=== PATIENT | female | born 1975 | race Caucasian/White ===

== ENCOUNTER 2017-06-26 18:39 | Emergency (ER) | payer BC ==
[~2017-06-26] VITALS: Ht 177.8 cm; Wt 99.8 kg
[~2017-06-26 18:39] MED LIST: BENTYL20 MG PO; CIPRO500 MG PO; Dicyclomine HCl20 MG PO; Flagyl500 MG PO; PANT40 PO; Pepcid40 MG PO
[2017-06-26 20:26] LABS: BASOPHILS ABSOLUTE AUTO 0.04 K/mm3 (0.00-0.23); BASOPHILS PERCENT AUTO 0 % (0-2); EOSINOPHILS ABSOLUTE AUTO 0.16 K/mm3 (0.00-0.68); EOSINOPHILS PERCENT AUTO 1 % (0-6); Hematocrit 42.8 % (33.0-51.0); Hemoglobin 14.4 g/dL (11.5-16.0); IMMATURE GRAN ABSOLUTE AUTO 0.04 K/mm3 (0.00-0.10); IMMATURE GRAN PERCENT AUTO 0 % (0-1); LYMPHOCYTES ABSOLUTE AUTO 3.15 K/mm3 (0.84-5.20); LYMPHOCYTES PERCENT AUTO 28 % (21-46); MONOCYTES ABSOLUTE AUTO 0.53 K/mm3 (0.16-1.47); MONOCYTES PERCENT AUTO 5 % (4-13); Mean Corpuscular HGB 30.6 pg (26.0-34.0); Mean Corpuscular HGB Conc 33.6 g/dL (31.5-36.5); Mean Corpuscular Volume 91 fL (80-100); Mean Platelet Volume 8.5 fL (9.1-12.4); NEUTROPHILS ABSOLUTE AUTO 7.19 K/mm3 (1.96-9.15); NEUTROPHILS PERCENT AUTO 65 % (41-73); Platelet Count 391 K/mm3 (150-400); RDW Coefficient Variation 11.7 % (11.7-14.2); RDW Standard Deviation 39.3 fL (35.1-46.3); White Blood Cell Count 11.11 K/mm3 (4.00-11.30)
[2017-06-26 20:53] LABS: Alanine Aminotransfer (ALT/SGP 15 U/L (12-78); Albumin, Blood 4.1 g/dL (3.4-5.0); Albumin/Globulin Ratio 1.2 (0.8-1.8); Alk Phos 74 U/L (50-136); Anion Gap 9 mmol/L (6-16); Aspartate Aminotrans (AST/SGOT 12 U/L (12-37); Bilirubin, Total 0.2 mg/dL (0.1-1.0); Blood Urea Nitrogen 24 mg/dL (8-24); Bun/Creatinine Ratio 36.3 (12.0-20.0); CO2, Blood 23 mmol/L (21-32); Calcium, Blood 9.4 mg/dL (8.5-10.1); Chloride, Blood 108 mmol/L (98-108); Creatinine, Blood 0.66 mg/dL (0.40-1.00); Globulin, Blood 3.5 g/dL (2.2-4.0); Glomerular Filtration Rate >60 (60-); Glucose, Blood 88 mg/dL (70-99); Potassium, Blood 4.1 mmol/L (3.5-5.5); Sodium, Blood 140 mmol/L (136-145); Total Protein, Blood 7.6 g/dL (6.4-8.2)
[2017-06-26 22:34] LABS: Troponin I <0.015 ng/mL (0.000-0.040)
== END 2017-06-26 23:26 | disposition home or self-care (01) ==
LOC: ER 18:39
PROVIDERS: Physician Assistant
DX: R10.12 Left upper quadrant pain (principal); Z87.891 Personal history of nicotine dependence
CPT/HCPCS: 36415; 74177; 80053; 81025; 83690; 84484; 85025; 93005; 93010; 96374; 99284; J3490; Q9967

== ENCOUNTER 2020-08-27 18:41 | Emergency (ER) | payer BC, OTHER ==
[~2020-08-27] VITALS: Ht 177.8 cm; Wt 111.1 kg
[2020-08-27] MEDS ORDERED: Celexa20 MG PO (19:10)
[2020-08-27] MEDS ORDERED: Betamethasone D15 G1 TOP (19:11)
== END 2020-08-27 19:15 | disposition home or self-care (01) ==
LOC: ER 18:41
DX: N93.9 Abnormal uterine and vaginal bleeding, unspecified (principal); Z87.891 Personal history of nicotine dependence
CPT/HCPCS: 99282

== ENCOUNTER 2020-09-20 09:01 | Day surgery (SDC) | payer OTHER ==
[~2020-09-20 09:01] MED LIST changes: +Betamethasone D15 G1 TOP; +Celexa20 MG PO
== END 2020-09-20 22:53 | disposition home or self-care (01) ==
LOC: MOI US 09:01
DX: C53.8 Malignant neoplasm of overlapping sites of cervix uteri (principal)
CPT/HCPCS: 76882

== ENCOUNTER 2020-10-19 07:01 | Day surgery (SDC) | payer BC, OTHER ==
[~2020-10-19] VITALS: Ht 177.8 cm; Wt 107.5 kg
--- NOTE | 2020-10-19 09:47 | NUR ---
10/19/20 0947 [facility] CALLED AND NOTIFIED WILL NEED X RAY FOR CONFIRMATION OF PLACEMENT OF MEDIPORT ON PATIENT.
--- NOTE | 2020-10-19 09:47 | NUR ---
10/19/20 0947 LICHA,LILLY POWER PORT ACCESED WITH ALEJANDRO NEEDLE BY DR WHITT INTRA OP.
== END 2020-10-19 10:26 | disposition home or self-care (01) ==
LOC: ORSCSDS 07:01 → ORSCMMR 08:30 → ORSCSDS 08:30 → ORD 08:30 → ORSCSDS 10:26
PROVIDERS: Surgery
PROC: 0JH60WZ Insertion of Totally Implantable Vascular Access Device into Chest Subcutaneous Tissue and Fascia, Open Approach (ICD-10-PCS; principal; 2020-10-19 08:30)
DX: C53.8 Malignant neoplasm of overlapping sites of cervix uteri (principal); F41.9 Anxiety disorder, unspecified; J45.909 Unspecified asthma, uncomplicated; Z87.891 Personal history of nicotine dependence; Z79.899 Other long term (current) drug therapy
CPT/HCPCS: 77001; C1788; J0690; J1642; J2250; J2704; J2710; J3010; J7120

== ENCOUNTER → 2020-11-17 | Outpatient (CLI) | payer BC, OTHER ==
[2020-11-17 09:44] LABS: BASOPHILS ABSOLUTE AUTO 0.03 K/mm3 (0.00-0.23); BASOPHILS PERCENT AUTO 1 % (0-2); EOSINOPHILS ABSOLUTE AUTO 0.05 K/mm3 (0.00-0.68); EOSINOPHILS PERCENT AUTO 2 % (0-6); Hematocrit 26.8 % (33.0-51.0); Hemoglobin 8.6 g/dL (11.5-16.0); IMMATURE GRAN ABSOLUTE AUTO 0.01 K/mm3 (0.00-0.10); IMMATURE GRAN PERCENT AUTO 0 % (0-1); LYMPHOCYTES ABSOLUTE AUTO 0.79 K/mm3 (0.84-5.20); LYMPHOCYTES PERCENT AUTO 27 % (21-46); MONOCYTES ABSOLUTE AUTO 0.21 K/mm3 (0.16-1.47); MONOCYTES PERCENT AUTO 7 % (4-13); Mean Corpuscular HGB 26.5 pg (26.0-34.0); Mean Corpuscular HGB Conc 32.1 g/dL (31.5-36.5); Mean Corpuscular Volume 83 fL (80-100); Mean Platelet Volume 8.6 fL (9.1-12.4); NEUTROPHILS ABSOLUTE AUTO 1.83 K/mm3 (1.96-9.15); NEUTROPHILS PERCENT AUTO 63 % (41-73); Platelet Count 170 K/mm3 (150-400); RDW Coefficient Variation 21.8 % (11.7-14.2); RDW Standard Deviation 64.5 fL (35.1-46.3); Red Blood Cell Count 3.25 M/mm3 (3.80-5.20); White Blood Cell Count 2.92 K/mm3 (4.00-11.30)
[2020-11-17 10:57] LABS: Alanine Aminotransfer (ALT/SGP 38 U/L (12-78); Albumin, Blood 3.9 g/dL (3.4-5.0); Albumin/Globulin Ratio 1.1 (0.8-1.8); Alk Phos 96 U/L (50-136); Anion Gap 8 mmol/L (6-16); Aspartate Aminotrans (AST/SGOT 24 U/L (12-37); Bilirubin, Total 0.4 mg/dL (0.1-1.0); Blood Urea Nitrogen 11 mg/dL (8-24); Bun/Creatinine Ratio 13.8 (12.0-20.0); CO2, Blood 24 mmol/L (21-32); Calcium, Blood 9.2 mg/dL (8.5-10.1); Chloride, Blood 106 mmol/L (98-108); Globulin, Blood 3.4 g/dL (2.2-4.0); Glomerular Filtration Rate >60 (60-); Glucose, Blood 104 mg/dL (70-99); Potassium, Blood 3.7 mmol/L (3.5-5.5); Sodium, Blood 138 mmol/L (136-145); Total Protein, Blood 7.3 g/dL (6.4-8.2)
== END ==
LOC: LAB SHORT 09:35 → LAB 12:00
PROVIDERS: Internal Medicine Hematology & Oncology
DX: C53.9 Malignant neoplasm of cervix uteri, unspecified (principal)
CPT/HCPCS: 80053; 85025

== ENCOUNTER → 2021-02-15 | Outpatient (CLI) | payer BC, OTHER ==
[2021-02-15 10:48] LABS: Source, Urine Clean Catch
[2021-02-15 10:59] LABS: Appearance, Urine Hazy (Clear); Bilirubin, Urine Neg (Neg); Blood, Urine 3+ (Neg); Color, Urine Yellow (P-Yellow); Glucose Qualitative, Urine Neg (Neg); Ketones, Urine Neg (Neg); Leukocyte Esterase, Urine 3+ (Neg); Nitrite, Urine Neg (Neg); Protein, Urine 2+ (Neg); Urobilinogen, Urine NORM (Normal)
[2021-02-15 11:18] LABS: Squamous Epithelial Cells Mod /hpf (Few)
[2021-02-15 11:19] LABS: Amorphous Light (0-Heavy); Bacteria Few /hpf
== END ==
LOC: LAB SHORT 09:41 → LAB 09:41
PROVIDERS: Surgery
DX: Z51.0 Encounter for antineoplastic radiation therapy (principal); C53.8 Malignant neoplasm of overlapping sites of cervix uteri; N93.9 Abnormal uterine and vaginal bleeding, unspecified; D70.1 Agranulocytosis secondary to cancer chemotherapy
CPT/HCPCS: 81001; 87086

== ENCOUNTER → 2021-03-16 | Outpatient (CLI) | payer BC, OTHER ==
[2021-03-16 09:22] LABS: BASOPHILS ABSOLUTE AUTO 0.04 K/mm3 (0.00-0.23); BASOPHILS PERCENT AUTO 1 % (0-2); EOSINOPHILS ABSOLUTE AUTO 0.36 K/mm3 (0.00-0.68); EOSINOPHILS PERCENT AUTO 7 % (0-6); Hematocrit 31.8 % (33.0-51.0); Hemoglobin 10.4 g/dL (11.5-16.0); IMMATURE GRAN ABSOLUTE AUTO 0.04 K/mm3 (0.00-0.10); IMMATURE GRAN PERCENT AUTO 1 % (0-1); LYMPHOCYTES ABSOLUTE AUTO 0.94 K/mm3 (0.84-5.20); LYMPHOCYTES PERCENT AUTO 19 % (21-46); MONOCYTES ABSOLUTE AUTO 0.58 K/mm3 (0.16-1.47); MONOCYTES PERCENT AUTO 11 % (4-13); Mean Corpuscular HGB Conc 32.7 g/dL (31.5-36.5); Mean Corpuscular Volume 101 fL (80-100); Mean Platelet Volume 8.3 fL (9.1-12.4); NEUTROPHILS ABSOLUTE AUTO 3.13 K/mm3 (1.96-9.15); NEUTROPHILS PERCENT AUTO 61 % (41-73); Platelet Count 192 K/mm3 (150-400); RDW Coefficient Variation 13.2 % (11.7-14.2); RDW Standard Deviation 49.1 fL (35.1-46.3); Red Blood Cell Count 3.15 M/mm3 (3.80-5.20); White Blood Cell Count 5.09 K/mm3 (4.00-11.30)
[2021-03-16 09:38] LABS: Anion Gap 9 mmol/L (6-16); Blood Urea Nitrogen 16 mg/dL (8-24); Bun/Creatinine Ratio 15.2 (12.0-20.0); CO2, Blood 24 mmol/L (21-32); Calcium, Blood 9.5 mg/dL (8.5-10.1); Chloride, Blood 102 mmol/L (98-108); Creatinine, Blood 1.05 mg/dL (0.40-1.00); Glomerular Filtration Rate 57 (60-); Glucose, Blood 95 mg/dL (70-99); Potassium, Blood 4.2 mmol/L (3.5-5.5); Sodium, Blood 135 mmol/L (136-145); Thyroid Stimulating Hormone 4.308 uIU/mL (0.360-4.800); Troponin I <0.017 ng/mL (0.000-0.040)
== END | disposition home or self-care (01) ==
LOC: LAB SHORT 09:13
PROVIDERS: Physician Assistant Surgical
DX: R00.0 Tachycardia, unspecified (principal)
CPT/HCPCS: 80048; 84443; 84484; 85025; 85379

== ENCOUNTER 2021-04-25 06:23 | Emergency (ER) | payer OTHER ==
[~2021-04-25] VITALS: Ht 177.8 cm; Wt 104.3 kg
[2021-04-25] MEDS ORDERED: OXYC5 PO (06:49)
[2021-04-25 07:05] LABS: Source, Urine Clean Catch
[2021-04-25 07:18] LABS: Appearance, Urine Clear (Clear); Bilirubin, Urine Neg (Neg); Blood, Urine Neg (Neg); Color, Urine Yellow (P-Yellow); Glucose Qualitative, Urine Neg (Neg); Ketones, Urine Neg (Neg); Leukocyte Esterase, Urine 1+ (Neg); Nitrite, Urine Neg (Neg); Protein, Urine 1+ (Neg); Urobilinogen, Urine NORM (Normal)
[2021-04-25 07:30] LABS: Bacteria Rare /hpf; Red Blood Cells, Urine 0-2 /hpf (0-2); Squamous Epithelial Cells Rare /hpf (Few)
== END 2021-04-25 07:55 | disposition home or self-care (01) ==
LOC: ER 06:23
PROVIDERS: Emergency Medicine
DX: M54.50 Low back pain, unspecified (principal); C76.0 Malignant neoplasm of head, face and neck; C77.9 Secondary and unspecified malignant neoplasm of lymph node, unspecified; Z85.43 Personal history of malignant neoplasm of ovary; G89.29 Other chronic pain; Z79.899 Other long term (current) drug therapy
CPT/HCPCS: 81001; 87086; 96374; 99284-25; J1170

== ENCOUNTER 2021-05-18 19:49 | Emergency (ER) | payer OTHER ==
[~2021-05-18] VITALS: Ht 177.8 cm; Wt 97.5 kg
[~2021-05-18 19:49] MED LIST changes: +OXYC5 PO
[2021-05-18] MEDS ORDERED: CITALOPRAM HBR20 M6 PO (20:16)
[2021-05-18] MEDS ORDERED: ONDA4ODT (20:16)
[2021-05-18] MEDS ORDERED: MECL25 PO (20:16)
[2021-05-24] MEDS ORDERED: FENTANYL1 EAC7 TOP (07:52)
== END 2021-05-18 22:29 | disposition home or self-care (01) ==
LOC: ER 19:49
DX: G89.3 Neoplasm related pain (acute) (chronic) (principal); C41.2 Malignant neoplasm of vertebral column; C77.9 Secondary and unspecified malignant neoplasm of lymph node, unspecified
CPT/HCPCS: 72132; 96374; 96375; 99284-25; J1170; J2765; Q9967

== ENCOUNTER 2021-06-08 17:10 | Emergency (ER) | payer OTHER ==
[~2021-06-08] VITALS: Ht 177.8 cm; Wt 99.8 kg
[~2021-06-08 17:10] MED LIST changes: +CITALOPRAM HBR20 M6 PO; +FENTANYL1 EAC7 TOP; +MECL25 PO; +ONDA4ODT
[2021-06-08 18:09] LABS: BASOPHILS ABSOLUTE AUTO 0.01 K/mm3 (0.00-0.23); BASOPHILS PERCENT AUTO 0 % (0-2); EOSINOPHILS ABSOLUTE AUTO 0.03 K/mm3 (0.00-0.68); EOSINOPHILS PERCENT AUTO 1 % (0-6); Hematocrit 25.5 % (33.0-51.0); Hemoglobin 8.7 g/dL (11.5-16.0); IMMATURE GRAN ABSOLUTE AUTO 0.05 K/mm3 (0.00-0.10); IMMATURE GRAN PERCENT AUTO 1 % (0-1); LYMPHOCYTES ABSOLUTE AUTO 0.42 K/mm3 (0.84-5.20); LYMPHOCYTES PERCENT AUTO 10 % (21-46); MONOCYTES ABSOLUTE AUTO 0.46 K/mm3 (0.16-1.47); MONOCYTES PERCENT AUTO 11 % (4-13); Mean Corpuscular HGB 31.1 pg (26.0-34.0); Mean Corpuscular HGB Conc 34.1 g/dL (31.5-36.5); Mean Corpuscular Volume 91 fL (80-100); NEUTROPHILS ABSOLUTE AUTO 3.31 K/mm3 (1.96-9.15); NEUTROPHILS PERCENT AUTO 77 % (41-73); RDW Coefficient Variation 18.4 % (11.7-14.2); RDW Standard Deviation 57.8 fL (35.1-46.3); White Blood Cell Count 4.28 K/mm3 (4.00-11.30)
[2021-06-08 18:19] LABS: Albumin, Blood 3.6 g/dL (3.4-5.0); Albumin/Globulin Ratio 0.8 (0.8-1.8); Bilirubin, Total 0.4 mg/dL (0.1-1.0); Calcium, Blood 9.3 mg/dL (8.5-10.1); Creatinine, Blood 1.46 mg/dL (0.40-1.00); Globulin, Blood 4.4 g/dL (2.2-4.0); Potassium, Blood 4.4 mmol/L (3.5-5.5)
[2021-06-08 18:29] LABS: Mean Platelet Volume 8.6 fL (9.1-12.4); Platelet Count 123 K/mm3 (150-400)
[2021-06-08] MEDS ORDERED: OXAYDO5 M4 PO (18:35)
[2021-06-08] MEDS ORDERED: HYDMOR2 PO (22:38)
== END 2021-06-08 23:10 | disposition home or self-care (01) ==
LOC: ER 17:10
PROVIDERS: Physician Assistant
DX: G89.3 Neoplasm related pain (acute) (chronic) (principal); C79.51 Secondary malignant neoplasm of bone; C56.9 Malignant neoplasm of unspecified ovary; Z87.891 Personal history of nicotine dependence
CPT/HCPCS: 36415; 71046; 72100; 80053; 85025; 96372; 96374; 96375; 99283-25; A9270; J1170; J1642; J1885; J2550; J7030

== ENCOUNTER 2021-06-09 09:47 | Inpatient (IN) | payer OTHER ==
[~2021-06-09] VITALS: Ht 177.8 cm; Wt 105.0 kg
[~2021-06-09 09:47] MED LIST changes: +HYDMOR2 PO; +OXAYDO5 M4 PO
--- NOTE | 2021-06-09 17:35 | NUR ---
Brief supportive visit this afternoon. Pt just arrived to medical floor room. Pt reports 6/10 pain across her lower back. Pt appears mildly anxious as well. Reviewed plan of care with Pt and parents. Pt and family express appreciation. Spoke with Dr Roy and discussed case. Dr Roy will consider starting Pt on dexamethasone to assist with pain. Bowel protocol started. Will review benefits of current regimen tomorrow for pain and bowel. If appropriate Pt may benefit from increase in her Fentanyl Patch, if no results from current bowel regimen consider changing from Senakot to Senna S (Plus) 1 to 2 tabs BID. Spoke with Primary RN Lisa and discussed case. Discussed consideration of offering Pt "Brown Cow" (Prune Juice, Apple Juice, butter combined and served warm). Palliative Care will remain available for symptom management.
--- NOTE | 2021-06-09 18:32 | NUR ---
Pt arrived to 330 via gurney from ED, she is able to stand and tx to bed indep, a/ox3, pleasant and cooperative with care, follows commands well, reports pain to her low back at 6/10, lungs are clear t/o, resp even and unlabored, no cough noted, hrr, no edema noted, ppp+2, cap refill <3sec, vs stable, afebrile, iv access is mediport, flushes well, started ns at tko, gave one dose of dilaudid for pain, btx4, hypoactive, abd soft, tender, no bm in several days, drank some prune juice, voids without diff, skin c/w/d, maew, shanell, call light in reach.
--- NOTE | 2021-06-10 01:39 | NUR ---
Patient alert and oriented x4, gait steady. Complains of the worst pain 7/10 on her back and hip area. Provided heating pad. PRN pain medications given. Patient is very anxious due to pain, PRN ativan given once. She is now more calm, but still complaining of severe pain and acid reflux. MD ordered omperazole daily and one to start now. Patient has a mediport that is accessed, changed dressing today. Patient had a BM also. Pain managed with PRN PO dilaudid and IV dilaudid, but needs it frequently. Vital signs are stable. Call light within reach.
[2021-06-10 05:06] LABS: Hematocrit 23.5 % (33.0-51.0); Hemoglobin 7.8 g/dL (11.5-16.0); Mean Corpuscular HGB 30.7 pg (26.0-34.0); Mean Corpuscular HGB Conc 33.2 g/dL (31.5-36.5); Mean Corpuscular Volume 93 fL (80-100); Platelet Count 101 K/mm3 (150-400); RDW Coefficient Variation 17.9 % (11.7-14.2); RDW Standard Deviation 58.6 fL (35.1-46.3); Red Blood Cell Count 2.54 M/mm3 (3.80-5.20); White Blood Cell Count 5.08 K/mm3 (4.00-11.30)
[2021-06-10 06:05] LABS: BAND PERCENT MAN 1 % (0-8); BASOPHILS PERCENT MAN 0 % (0-2); EOSINOPHILS PERCENT MAN 0 % (0-6); LYMPHOCYTES PERCENT MAN 8 % (21-46); MONOCYTES ABSOLUTE MAN 0.45 K/mm3 (0.16-1.47); MONOCYTES PERCENT MAN 9 % (4-13); NEUTROPHILS ABSOLUTE MAN 4.21 K/mm3 (1.96-9.15); SEG NEUTROPHILS PERCENT MAN 82 % (41-73); TOTAL CELLS COUNTED 100
[2021-06-10 07:22] LABS: Albumin, Blood 3.5 g/dL (3.4-5.0); Albumin/Globulin Ratio 0.9 (0.8-1.8); Bilirubin, Total 0.5 mg/dL (0.1-1.0); Bun/Creatinine Ratio 10.8 (12.0-20.0); Calcium, Blood 9.1 mg/dL (8.5-10.1); Creatinine, Blood 1.3 mg/dL (0.40-1.00); Globulin, Blood 3.7 g/dL (2.2-4.0); Total Protein, Blood 7.2 g/dL (6.4-8.2)
--- NOTE | 2021-06-10 11:34 | NUR ---
AT BEDSIDE 10:45 REQUESTED ATIVAN ORDER X1 DONE
--- NOTE | 2021-06-10 13:22 | NUR ---
UPDATED DR ZIMMERMAN, RE BP AND ATIVAN RESPONSE. SHE IS CALMER, BUT STILL ANTSY. ATTEMPTING TO GET TO REST. HOLDING OFF ON B/P MEDS AT THIS TIME.
--- NOTE | 2021-06-10 15:54 | NUR ---
DISCUSSED BP WITH DR ZIMMERMAN. ORDERS PENDING
--- NOTE | 2021-06-10 17:50 | NUR ---
PT HAS BEEN ANXIOUS, PACING, DENIES HIGH PAIN, JUST FEELS BAD. DISCUSSED WDITH DR ZIMMERMAN, GOT ANX MEDS AND LATER TODAY, GOT BP MEDS DUE TO HIGH BP. FAMILY IN AND OUT TODAY. SEEMS TO BE SOME BETTER THIS TYRONE. STATES REALLY FEELS HAS BEEN GETTING TOO MUCH PAIN MEDS AND WANTS TO CUT BACK. DONE. NO OTHER CONCERNS NOTED. BED IN LOW POSITION, CALL LITE IN REACH, CALLS APPROP
--- NOTE | 2021-06-11 03:32 | NUR ---
UPDATE PT AWOKE CONFUSED AND AGITATED AFTER RIPPING TUBING OFF MEDIPORT ACCESS. PORT WAS DEACCESSED AND REACCESSED WITH A HEPARIN FLUSH. PT HAVING HALLUCINATIONS AND BECOMING INCREASINGLY AGITATED WITH STAFF. ATTEMPTING TO GET OOB DESPITE UNSTEADY GAIT. JOSE RAUL, PT'S MOTHER CONTACTED AND THIS RN REQUESTED TO SIT AT BEDSIDE WITH PT. WILL CONTINUE TO MONITOR
[2021-06-11 08:26] LABS: BASOPHILS ABSOLUTE AUTO 0.01 K/mm3 (0.00-0.23); BASOPHILS PERCENT AUTO 0 % (0-2); EOSINOPHILS PERCENT AUTO 0 % (0-6); Hematocrit 23.5 % (33.0-51.0); Hemoglobin 8.2 g/dL (11.5-16.0); IMMATURE GRAN PERCENT AUTO 1 % (0-1); LYMPHOCYTES ABSOLUTE AUTO 0.55 K/mm3 (0.84-5.20); LYMPHOCYTES PERCENT AUTO 7 % (21-46); MONOCYTES ABSOLUTE AUTO 0.92 K/mm3 (0.16-1.47); MONOCYTES PERCENT AUTO 11 % (4-13); Mean Corpuscular HGB 31.2 pg (26.0-34.0); Mean Corpuscular HGB Conc 34.9 g/dL (31.5-36.5); Mean Corpuscular Volume 89 fL (80-100); NEUTROPHILS ABSOLUTE AUTO 6.52 K/mm3 (1.96-9.15); NEUTROPHILS PERCENT AUTO 81 % (41-73); Platelet Count 161 K/mm3 (150-400); RDW Coefficient Variation 17.6 % (11.7-14.2); RDW Standard Deviation 56.5 fL (35.1-46.3); Red Blood Cell Count 2.63 M/mm3 (3.80-5.20)
[2021-06-11 09:00] LABS: Albumin, Blood 3.4 g/dL (3.4-5.0); Anion Gap 15 mmol/L (6-16); Blood Urea Nitrogen 13 mg/dL (8-24); Bun/Creatinine Ratio 11.2 (12.0-20.0); CO2, Blood 19 mmol/L (21-32); Calcium, Blood 9.1 mg/dL (8.5-10.1); Chloride, Blood 90 mmol/L (98-108); Creatinine, Blood 1.16 mg/dL (0.40-1.00); Glomerular Filtration Rate 51 (60-); Glucose, Blood 121 mg/dL (70-99); Phosphorus, Blood 3.2 mg/dL (2.5-4.9); Potassium, Blood 3.3 mmol/L (3.5-5.5); Sodium, Blood 124 mmol/L (136-145)
[2021-06-11 10:34] LABS: Osmolality, Serum 255 mos/KG (275-300)
--- NOTE | 2021-06-11 13:11 | NUR ---
REPORT TO JOHNNY RN IN ICU. RELATIVES AWARE PATIENT MAY BE COMING BACK TO THIS FLOOR TODAY AFTER MEDS GIVEN. JOHNNY TO CALL TO CLARIFY 3% SALINE TO BE GIVEN. PATIENT DENIES ANY PAIN. ONE PERSON ASSIT TO W/C. MEDIPORT LOCKED RT C.W. ALL BELONGINGS TRANSFERRED WITH PATIENT. ANSWER ALL QUESTIONS.
--- NOTE | 2021-06-11 13:20 | NUR ---
RECEIVED PT FROM MEDICAL FLOOR VIA WHEELCHAIR.PT ABLE TO TRANSFER FROM THE WHEELCHAIR TO THE BED WITH STANDBY ASSIST. PT IS AWAKE AND ALERT. PT IS ORIENTED X 3. PT STATES "I AM A LITTLE DIZZY AND I THINK I LOST A FEW DAYS." PT REPORTS 6/10 ABDOMINAL PAIN THAT RADIATES TO HER LOWER BACK. MED WITH DILAUDID 1 MG IVP X 1 SEE EMAR. PT STATES " I AM TRYING NOT TO TAKE VERY MUCH PAIN MEDICATION BECAUSE IT MAKES ME ALL LOOPY." ECG SHOWS ST WITH RATE 100-110'S. BP ELEVATED-SEE FLOWSHEET. PT GIVEN APRESOLINE PO SCHEDULED DOSE-SEE EMAR. LUNGS DIMINISHED IN THE BASES, BUT NO NOTED SOB OR COUGH. MAINTAINS SATS>90% ON RA. PT DENIES NAUSEA. PT TOOKE PO MED WITHOUT DIFFICULTY. PT DENIES THE NEED TO VOID AT THIS TIME. SHE GETS UP TO THE BEDSIDE COMMODE TO VOID AND THERE IS NO NOTE OF INCONTINENCE. [facility] MEDIPORT DRESSING IS C/D/I. PT WAS CONFUSED LAST NIGHT AND INADVERTENTLY DEACCESSED HER MEDIPORT. IN DOING SO, SHE CAUSED A SKIN TEAR WHERE THE OCCLUSIVE DRESSING WAS. PT PARENTS AT THE BEDSIDE. BED ALARM ON AND TIFFANY VEST IN PLACE FOR PT SAFETY. CALL LIGHT WITHIN PT REACH AND SHE IS CURRENTLY ABLE TO DEMONSTRATE UNDERSTANDING.
--- NOTE | 2021-06-11 16:11 | NUR ---
DR. ZIMMERMAN NOTIFIED OF NA+123. 3% SALINE TO INFUSED AT 50 CC/HR X 100 CC, THEN RECHECK NA+. PT RESTING QUIETLY WHEN NOT DISTURBED, BUT AWAKENS EASILY AND IS A&OX3-FORGETFUL AT TIMES, BUT EASILY RE-ORIENTED. BP 168/119-DR. ZIMMERMAN AWARE.
--- NOTE | 2021-06-11 17:00 | NUR ---
ASSISTED PT OOB TO BSC WITH STANDBY ASSISTFOR LINES AND TUBES. PT GIVEN SPONGE BATH, HAIR WASHED, CLOTHES CHANGED, ORAL CARE COMPLETED. PT TOLERATED WELL. SHE WAS ABLE TO ASSIST WITH THESE TASKS AND REMAINS ORIENTED. PT DENIES PAIN AT THIS TIME.
--- NOTE | 2021-06-11 17:50 | NUR ---
PT REPORTS 5/10 ABDOMINAL, LOW BACK, AND LEFT HIP PAIN. PT HAS HAD A VERY POOR APPETITE TODAY AND IS REFUSING DINNER. PT MED WITH ZOFRAN 4 MG IVP X 1-SEE EMAR. GIVEN NOW DOSE OF KCL 40 MEQ PO. BP REMAINS ELEVATED. PT GIVEN APRESOLINE 50 MG PO-SEE EMAR. 3% SALINE INFUSING @ 50 CC/HR X 100 ML, THEN WILL RE-CHECK CMP.
[2021-06-11 18:55] LABS: Anion Gap 10 mmol/L (6-16); Blood Urea Nitrogen 9 mg/dL (8-24); Bun/Creatinine Ratio 11.7 (12.0-20.0); CO2, Blood 17 mmol/L (21-32); Chloride, Blood 103 mmol/L (98-108); Creatinine, Blood 0.77 mg/dL (0.40-1.00); Glomerular Filtration Rate >60 (60-); Glucose, Blood 86 mg/dL (70-99); Potassium, Blood 2.6 mmol/L (3.5-5.5); Sodium, Blood 130 mmol/L (136-145)
[2021-06-11 18:58] LABS: Calcium, Blood 6.6 mg/dL (8.5-10.1)
--- NOTE | 2021-06-11 19:23 | NUR ---
DR. ZIMMERMAN NOTIFIED THAT BP REMAINS ELEVATED DESPITE ADDITIONAL APRESOLINE-ORDERS GIVEN FOR HYDRALAZINE 20 MG IVP X [address]. DR. ZIMMERMAN AWARE THAT NA+ NOW 130-3% SALINE DISCONTINUED. RECHECK CMP IN 4 HOURS. K+ 2.6 DESPITE ADDITIONAL 40 MEQ KCL PO-ORDERS GIVEN FOR KCL [address] ZIMMERMAN AWARE THAT CA+ 6.6-NO NEW ORDERS FOR CA+REPLACEMENT AT THIS TIME. REPORT GIVEN TO EARL OLVERA.
[2021-06-11 22:33] LABS: Bun/Creatinine Ratio 11.4 (12.0-20.0); Calcium, Blood 8.5 mg/dL (8.5-10.1); Creatinine, Blood 1.05 mg/dL (0.40-1.00)
[2021-06-11 22:51] LABS: Anion Gap 13 mmol/L (6-16); Blood Urea Nitrogen 12 mg/dL (8-24); Bun/Creatinine Ratio 11.1 (12.0-20.0); CO2, Blood 20 mmol/L (21-32); Calcium, Blood 8.2 mg/dL (8.5-10.1); Chloride, Blood 90 mmol/L (98-108); Creatinine, Blood 1.08 mg/dL (0.40-1.00); Glomerular Filtration Rate 55 (60-); Glucose, Blood 110 mg/dL (70-99); Phosphorus, Blood 3.2 mg/dL (2.5-4.9); Potassium, Blood 4.1 mmol/L (3.5-5.5); Sodium, Blood 123 mmol/L (136-145)
[2021-06-12 02:14] LABS: BASOPHILS ABSOLUTE AUTO 0.01 K/mm3 (0.00-0.23); BASOPHILS PERCENT AUTO 0 % (0-2); EOSINOPHILS PERCENT AUTO 0 % (0-6); Hematocrit 23.4 % (33.0-51.0); Hemoglobin 8.2 g/dL (11.5-16.0); IMMATURE GRAN ABSOLUTE AUTO 0.08 K/mm3 (0.00-0.10); IMMATURE GRAN PERCENT AUTO 1 % (0-1); LYMPHOCYTES ABSOLUTE AUTO 0.43 K/mm3 (0.84-5.20); LYMPHOCYTES PERCENT AUTO 7 % (21-46); MONOCYTES ABSOLUTE AUTO 0.87 K/mm3 (0.16-1.47); MONOCYTES PERCENT AUTO 14 % (4-13); Mean Corpuscular HGB 31.1 pg (26.0-34.0); Mean Corpuscular Volume 89 fL (80-100); Mean Platelet Volume 7.8 fL (9.1-12.4); NEUTROPHILS ABSOLUTE AUTO 4.87 K/mm3 (1.96-9.15); NEUTROPHILS PERCENT AUTO 78 % (41-73); Platelet Count 123 K/mm3 (150-400); RDW Coefficient Variation 17.8 % (11.7-14.2); RDW Standard Deviation 56.7 fL (35.1-46.3); Red Blood Cell Count 2.64 M/mm3 (3.80-5.20); White Blood Cell Count 6.26 K/mm3 (4.00-11.30)
[2021-06-12 02:30] LABS: Anion Gap 13 mmol/L (6-16); Blood Urea Nitrogen 12 mg/dL (8-24); Bun/Creatinine Ratio 11.8 (12.0-20.0); CO2, Blood 20 mmol/L (21-32); Calcium, Blood 8.3 mg/dL (8.5-10.1); Chloride, Blood 92 mmol/L (98-108); Creatinine, Blood 1.02 mg/dL (0.40-1.00); Glomerular Filtration Rate 59 (60-); Glucose, Blood 99 mg/dL (70-99); Phosphorus, Blood 2.9 mg/dL (2.5-4.9); Sodium, Blood 125 mmol/L (136-145)
--- NOTE | 2021-06-12 05:40 | NUR ---
SHIFT SUMMARY PATIENT HAD INTAKE OF 500ML FREE WATER DURING SHIFT. SODIUM LEVEL 121 AT BEGINNING OF SHIFT-3% SALINE RESTARTED @ 50ML/HR W/ Q2H BMP. MAG AND POTASSIUM LEVELS LOW AT BEGINNING OF SHIFT-2G MAGNESIUM SULFATE AND 40MEQ KCL GIVEN. PATIENT BP REMAINED HIGH AT BEGINNING OF SHIFT-ORDERS OBTAINED FOR Q6H PRN HYDRALAZINE 50MG IV FOR SBP GREATER THAN 160 MMHG. PATIENT COMPLAINED OF INCREASING PAIN IN HIPS, RT SIDE AND LT SHOULDER-DILAUDID 1MG IV GIVEN WITH INCREASED CONFUSION, PATIENT REQUESTED 0.5MG AT THE NEXT ADMINISTRATION. MORPHINE 20MG GIVEN X 1. PATIENT HAD ONE EPISODE OF NAUSEA REQUIRING 4MG ZOFRAN IV. NO OTHER CHANGES DURING SHIFT.
[2021-06-12 07:05] LABS: Bun/Creatinine Ratio 11.7 (12.0-20.0); Calcium, Blood 8.5 mg/dL (8.5-10.1); Creatinine, Blood 1.03 mg/dL (0.40-1.00)
--- NOTE | 2021-06-12 07:51 | NUR ---
PT AWAKE, ALERT, AND ORIENTED X 4. PT DENIES PAIN AT THIS TIME. ECG SHOWS ST WITH RATE 110'S TO 120'S. BP 160/102-ROUTINE AM BP MEDS GIVEN-SEE EMAR. LUNGS CLEAR. NO NOTED SOB OR COUGH. SATS>90% ON RA. ABDOMEN IS SOFT AND MILDLY TENDER TO PALPATION. RIGHT QUADRANT WITH BRUISING NOTED(LIKELY FROM LOVENOX INJECTIONS.) BT'S PRESENT X 4. PT DOES NOT NEED TO VOID AT THIS TIME. SHE WILL CALL FOR ASSIST TO BRP PRN. SKIN IS OVERALL CLEAR, DRY, AND INTACT. [facility] MEDIPORT DRESSING C/D/I, BUT THE SKIN INTEGRITY HAS BEEN COMPROMISED PT ACCIDENTALLY REMOVED HER MEDIPORT(06/11/21 EARLY AM) DRESSING AND IN DOING SO, REMOVED THE SKIN WITH IT. 3% NS CONTINUES AT 30 ML/HR. REPEAT CMP @ 1000.
--- NOTE | 2021-06-12 10:06 | NUR ---
DR. ZIMMERMAN HERE TO SEE PT. DURING NEURO EXAM, NOTED THAT RIGHT PUPIL IS 7 MM AND SLUGGISH VS. LEFT PUPIL 4 MM AND BRISK. RIGHT EYE WITH NYSTAGMUS. ALSO, STRABISMUS AND CONVERGENCE INSUFFICIENCY NOTED. PT REPORTS BLURRED VISION AND DIZZINESS THAT HAS INCREASED OVER THE LAST COUPLE OF WEEKS. PT MOTHER REPORTS THAT PT WAS NOT ABLE TO KEEP HER RIGHT EYE OPEN A COUPLE OF DAYS AGO. DR. ZIMMERMAN AWARE THAT PT REMAINS HYPERTENSIVE. ANTICIPATE NEW RX FOR BP AND CT OF THE HEAD LATER TODAY. CMP DRAWN AND SENT TO LAB.
[2021-06-12 10:26] LABS: Albumin, Blood 2.9 g/dL (3.4-5.0); Albumin/Globulin Ratio 0.9 (0.8-1.8); Bilirubin, Total 0.3 mg/dL (0.1-1.0); Bun/Creatinine Ratio 10.5 (12.0-20.0); Calcium, Blood 8.2 mg/dL (8.5-10.1); Creatinine, Blood 1.14 mg/dL (0.40-1.00); Globulin, Blood 3.4 g/dL (2.2-4.0); Potassium, Blood 4.2 mmol/L (3.5-5.5); Total Protein, Blood 6.3 g/dL (6.4-8.2)
--- NOTE | 2021-06-12 11:43 | NUR ---
PT TRANSPORTED TO CT SCAN VIA BED WITH RN AT BEDSIDE. TOLERATED WELL. PT ABLE TO ALLOW FOR COMPLETION OF CT HEAD, CHEST, ABDOMEN, AND PELVIS. WITH ALL THE MOVING, PT STATES THAT HER HIP PAIN IS WORSE-WILL MEDICATE FOR PAIN PER RX. HR TRENDING 110-140'S. SBP 130-160'S AND DBP 100-110'S. IST DOSE OF METOPROLOL PO GIVEN PRIOR TO CT SCAN-SEE EMAR.PT FAMILY IN THE ROOM FOR VISIT. CALL LIGHT WITHIN REACH.
--- NOTE | 2021-06-12 12:45 | NUR ---
DR. ZIMMERMAN GIVEN UPDATE AND MADE AWARE THAT CT RESULTS ARE AVAILABLE. ORDERS GIVEN TO RECHECK RP @ 1600.
--- NOTE | 2021-06-12 13:03 | NUR ---
PT REPORTS 08/12 RIGHT HIP AND BACK PAIN-MED WITH ROXANOL 20 MG PO.
--- NOTE | 2021-06-12 14:56 | NUR ---
DR. ZIMMERMAN HERE TO SPEAK TO PT AND FAMILY REGARDING CT RESULTS.
[2021-06-12 15:56] LABS: Albumin, Blood 2.8 g/dL (3.4-5.0); Anion Gap 6 mmol/L (6-16); Blood Urea Nitrogen 13 mg/dL (8-24); Bun/Creatinine Ratio 10.7 (12.0-20.0); CO2, Blood 21 mmol/L (21-32); Calcium, Blood 8.2 mg/dL (8.5-10.1); Chloride, Blood 100 mmol/L (98-108); Creatinine, Blood 1.21 mg/dL (0.40-1.00); Glomerular Filtration Rate 48 (60-); Glucose, Blood 107 mg/dL (70-99); Phosphorus, Blood 3.4 mg/dL (2.5-4.9); Potassium, Blood 4.4 mmol/L (3.5-5.5); Sodium, Blood 127 mmol/L (136-145)
--- NOTE | 2021-06-12 16:00 | NUR ---
ASSISTED PT TO SHOWER VIA SHOWER CHAIR. ONE PERSON ASSIST. PT TOLERATED WELL. UPON RETURN TO ROOM, MEDIPORT DRESSING WAS WET. IN ATTEMPTING TO CHANGE THE DRESSING, THE SAFETY DEVICE ACTIVATED AND DEACCESSED THE DEVICE-IMMEDIATELY, THE AREA WAS CLEANSED WITH CHLORHEXADINE, THEN RE-ACCESSED WITH 20G/0.75 LENGTH. EXCELLENT BLOOD RETURN AND PT TOLERATED WELL. 3% SALINE CONTINUES @ 30 ML/HR. HR TRENDING 90'S AND SBP 130'S/DBP 90'S. LUNGS REMAIN CLEAR, NO NOTED SOB OR COUGH. PT MAINTAINS SATS>90% ON RA. NO NAUSEA AT PRESENT, BUT APPETITE REMAINS POOR.
--- NOTE | 2021-06-12 18:30 | NUR ---
PT HAS BEEN RESTING QUIETLY SINCE MEDICATED WITH DILAUDID @ 1711. PT REFUSED DINNER, BUT DID EAT A FEW ARIA CRACKERS PER HER REQUEST. MEDICATED WITH ZOFRAN 4 MG IVP PRIOR TO GIVING PO KCL. DR. ZIMMERMAN UPDATED TO CURRENT VS AND MOST RECENT NA+ LEVEL-ORDERS GIVEN TO RECHECK RENAL PANEL @ 2199-THERE IS A NURSING ORDER THAT HAS PARAMETERS FOR THE 3% SALINE DRIP. PT HAS ONLY VOIDED 1 TIME TODAY-UNMEASURED IN RADIOLOGY DEPARTMENT. DR. ZIMMERMAN IS AWARE OF POOR URINE OUTPUT, BUT NO NEW ORDERS.
--- NOTE | 2021-06-12 19:18 | NUR ---
ASSUMED CARE PATIENT LYING IN BED SLEEPING. NO FAMILY AT BEDSIDE. BELONGINGS AND WATER ON TABLE. 3% SALINE INF @ 30ML/HR. MONITOR SHOWS SR W/ HR IN 80'S. HYPERTENSIVE W/ BP 159/122 MAP 133. PATIENT APPEARS COMFORTABLE AND RESTING. REPORT COMPLETED WITH EARL ROJAS.
[2021-06-12 22:35] LABS: Albumin, Blood 2.7 g/dL (3.4-5.0); Anion Gap 5 mmol/L (6-16); Blood Urea Nitrogen 14 mg/dL (8-24); Bun/Creatinine Ratio 9.9 (12.0-20.0); CO2, Blood 23 mmol/L (21-32); Calcium, Blood 8.3 mg/dL (8.5-10.1); Chloride, Blood 103 mmol/L (98-108); Creatinine, Blood 1.42 mg/dL (0.40-1.00); Glomerular Filtration Rate 40 (60-); Glucose, Blood 95 mg/dL (70-99); Phosphorus, Blood 3.4 mg/dL (2.5-4.9); Potassium, Blood 4.3 mmol/L (3.5-5.5); Sodium, Blood 131 mmol/L (136-145)
[2021-06-13 03:27] LABS: BASOPHILS ABSOLUTE AUTO 0.01 K/mm3 (0.00-0.23); BASOPHILS PERCENT AUTO 0 % (0-2); EOSINOPHILS ABSOLUTE AUTO 0.01 K/mm3 (0.00-0.68); EOSINOPHILS PERCENT AUTO 0 % (0-6); Hematocrit 21.5 % (33.0-51.0); Hemoglobin 7.2 g/dL (11.5-16.0); IMMATURE GRAN ABSOLUTE AUTO 0.05 K/mm3 (0.00-0.10); IMMATURE GRAN PERCENT AUTO 1 % (0-1); LYMPHOCYTES ABSOLUTE AUTO 0.33 K/mm3 (0.84-5.20); LYMPHOCYTES PERCENT AUTO 7 % (21-46); MONOCYTES ABSOLUTE AUTO 0.75 K/mm3 (0.16-1.47); MONOCYTES PERCENT AUTO 17 % (4-13); Mean Corpuscular HGB 31.3 pg (26.0-34.0); Mean Corpuscular HGB Conc 33.5 g/dL (31.5-36.5); Mean Platelet Volume 8.6 fL (9.1-12.4); NEUTROPHILS PERCENT AUTO 75 % (41-73); Platelet Count 104 K/mm3 (150-400); RDW Coefficient Variation 19.2 % (11.7-14.2); RDW Standard Deviation 64.2 fL (35.1-46.3); White Blood Cell Count 4.55 K/mm3 (4.00-11.30)
[2021-06-13 03:41] LABS: Albumin, Blood 2.6 g/dL (3.4-5.0); Anion Gap 8 mmol/L (6-16); Blood Urea Nitrogen 15 mg/dL (8-24); Bun/Creatinine Ratio 9.7 (12.0-20.0); CO2, Blood 21 mmol/L (21-32); Chloride, Blood 104 mmol/L (98-108); Creatinine, Blood 1.55 mg/dL (0.40-1.00); Glomerular Filtration Rate 36 (60-); Glucose, Blood 94 mg/dL (70-99); Phosphorus, Blood 3.4 mg/dL (2.5-4.9); Potassium, Blood 4.6 mmol/L (3.5-5.5); Sodium, Blood 133 mmol/L (136-145)
[2021-06-13 03:48] LABS: Mean Corpuscular Volume 94 fL (80-100)
--- NOTE | 2021-06-13 05:18 | NUR ---
SHIFT SUMMARY NO SIGNIFICANT CHANGES DURING SHIFT. PATIENT REMAINED ORIENTED X 4, NYSTAGMUS PRESENT AND PUPILS UNEQUAL. PATIENT C/O BLURRY AND DOUBLE VISION. PATIENT REQUIRED 3 DOSES OF DILAUDID 1MG IV DURING SHIFT FOR RT HIP AND BACK PAIN. TOTAL URINE OUTPUT FOR SHIFT WAS 350ML. NO BM THIS SHIFT. LABS SHOWED INCREASE OF SODIUM TO 133-3% SALINE INF @ 20ML/HR.
--- NOTE | 2021-06-13 08:18 | NUR ---
PATIENT EATING BREAKFAST DR LYN ROUNDED ON PATIENT, PATIENT HAVING RIGHT BUTTOX CRAMP, DOUBLE VISSION, AND RIGHT EAR PLUGGED, ALL SYMPTOMS REPORTED TO DR LYN FROM PATIENT. EATING BREAKFAST NOW, MOM AND DAD AT BEDSIDE HELPFUL WITH CARE. MEDICATED FOR PAIN 09/11, CALL LIGHT WITH IN REACH, [facility]
[2021-06-13 08:55] LABS: Albumin, Blood 2.7 g/dL (3.4-5.0); Anion Gap 10 mmol/L (6-16); Blood Urea Nitrogen 15 mg/dL (8-24); Bun/Creatinine Ratio 9.1 (12.0-20.0); CO2, Blood 18 mmol/L (21-32); Calcium, Blood 8.2 mg/dL (8.5-10.1); Chloride, Blood 104 mmol/L (98-108); Creatinine, Blood 1.64 mg/dL (0.40-1.00); Glomerular Filtration Rate 34 (60-); Glucose, Blood 90 mg/dL (70-99); Phosphorus, Blood 3.4 mg/dL (2.5-4.9); Potassium, Blood 4.5 mmol/L (3.5-5.5); Sodium, Blood 132 mmol/L (136-145)
--- NOTE | 2021-06-13 09:47 | NUR ---
PHYSICAL THERAPY PATIENT WORKING WITH PT, MEDICATED FOR PAIN, MOTHER AT BEDSIDE, PATIENT SITTING AT THE EDGE OF BED [place]
--- NOTE | 2021-06-13 11:12 | NUR ---
DR RIKI GARCIA REPORTED RIGHT HIP PAIN RADIATING UP THE RIGHT SIDE AND PATIENT COMPLAINS OF RINGING IN HER EAR ON THE RIGHT SIDE. DR IN THE ROOM NOW WITH PATIENT AND MOTHER
[2021-06-13 14:29] LABS: Albumin, Blood 2.6 g/dL (3.4-5.0); Anion Gap 7 mmol/L (6-16); Blood Urea Nitrogen 18 mg/dL (8-24); Bun/Creatinine Ratio 9.6 (12.0-20.0); CO2, Blood 19 mmol/L (21-32); Calcium, Blood 8.3 mg/dL (8.5-10.1); Chloride, Blood 107 mmol/L (98-108); Creatinine, Blood 1.87 mg/dL (0.40-1.00); Glomerular Filtration Rate 29 (60-); Glucose, Blood 90 mg/dL (70-99); Phosphorus, Blood 3.5 mg/dL (2.5-4.9); Potassium, Blood 4.7 mmol/L (3.5-5.5); Sodium, Blood 133 mmol/L (136-145)
--- NOTE | 2021-06-13 17:04 | NUR ---
MRI PATIENT BACK TO ROOM FROM MRI, PATIENT WAS UNABLE TO LYE FLAT FOR THE MRI, MEDICATED FOR PAIN AND ATTEMPTED AGAIN TO LAY DOWN, PATIENT BECAME ANXIOUS AND REFUSED THE MRI. NO DISTRESS PRESENTLY, FAMILY WENT HOME, 3% INFUSING, CALL LIGHT WITH IN REACH, WCTM
--- NOTE | 2021-06-13 17:28 | NUR ---
DR OLIVARES REPORTED TO DR OLIVARES, PATIENT REFUSED HEAD MRI, PATIENT WAS ENCOURAGED AND PRE MEDICATED, PATIENT ANXIETY AND DISTRESS INCREASED, AFTER TWO TIMES OF ENCOURAGING HER SHE WAS ADMIT TO NOT HAVE THE MRI. TO ORDER PALLIATIVE CARE FOR FAMILY SUPPORT
--- NOTE | 2021-06-13 18:40 | NUR ---
SHIFT SUMMARY PATEINT ALERT AND ORIENTED TO SELF STAFF, FAMILY, PATIENT IS CONFUSED AND HAVING VISUAL HALLUCINATIONS. PATIENT WAS UNABLE TO TOLERATE THE MRI REPORTED TO DR OLIVARES. LS DIMINSHED 98% ON RA, BP 154/107 (119), MEDICATED FOR NAUSEA BEFORE AM MEDICATIONS, STAND BY ASSIST TO BSC, SKIN INTACT, ABRASIONS TO BOTH HANDS KNUCKLES, MEDIPORT INFUSING 3% AT 20 ML/HR, WATER RESTRICTION INCREASED TO 1250, PALLIATIVE CARE ORDERED FOR FAMILY, BUN GFR AND CREATININE WORSENING, DR OLIVARES REVEIWING RESULTS, CALL LIGHT WITH IN REACH, WILL RELAY TO PM RN, WCTM
[2021-06-13 20:22] LABS: Albumin, Blood 2.8 g/dL (3.4-5.0); Anion Gap 6 mmol/L (6-16); Blood Urea Nitrogen 20 mg/dL (8-24); Bun/Creatinine Ratio 10.3 (12.0-20.0); CO2, Blood 19 mmol/L (21-32); Calcium, Blood 8.3 mg/dL (8.5-10.1); Chloride, Blood 110 mmol/L (98-108); Creatinine, Blood 1.95 mg/dL (0.40-1.00); Glomerular Filtration Rate 28 (60-); Glucose, Blood 94 mg/dL (70-99); Phosphorus, Blood 3.4 mg/dL (2.5-4.9); Potassium, Blood 4.6 mmol/L (3.5-5.5); Sodium, Blood 135 mmol/L (136-145)
--- NOTE | 2021-06-13 20:39 | NUR ---
PT NA+ AT 1943 WAS 135. 3% SALINE DISCONTINUED PER MD ORDER PARAMETERS.
--- NOTE | 2021-06-13 21:58 | NUR ---
PT RIGHT HIP PAIN SEVERE, GIVEN SEVERAL PRN SINCE SHIFT BEGAN (SEE EMAR). PT REQUEST TO BE UP IN CHAIR FOR POSITION CHANGE TO SEE IF PAIN WILL DECREASE. PT ASSISTED TO CHAIR. INSTRUCTED TO CALL WITH ANY NEEDS OR TO RETURN TO BED. WILL CONTINUE TO MONITOR.
--- NOTE | 2021-06-13 23:36 | NUR ---
PT IS RESTING IN CHAIR COMFORTABLY WITH EYES CLOSED. NO S/S OF ACUTE DISTRESS NOTED AT THIS TIME.
[2021-06-14 02:24] LABS: BASOPHILS ABSOLUTE AUTO 0.01 K/mm3 (0.00-0.23); BASOPHILS PERCENT AUTO 0 % (0-2); EOSINOPHILS ABSOLUTE AUTO 0.03 K/mm3 (0.00-0.68); EOSINOPHILS PERCENT AUTO 1 % (0-6); Hematocrit 22.2 % (33.0-51.0); Hemoglobin 6.9 g/dL (11.5-16.0); IMMATURE GRAN ABSOLUTE AUTO 0.07 K/mm3 (0.00-0.10); IMMATURE GRAN PERCENT AUTO 2 % (0-1); LYMPHOCYTES ABSOLUTE AUTO 0.41 K/mm3 (0.84-5.20); LYMPHOCYTES PERCENT AUTO 11 % (21-46); MONOCYTES ABSOLUTE AUTO 0.56 K/mm3 (0.16-1.47); MONOCYTES PERCENT AUTO 15 % (4-13); Mean Corpuscular HGB 30.7 pg (26.0-34.0); Mean Corpuscular HGB Conc 31.1 g/dL (31.5-36.5); Mean Platelet Volume 8.5 fL (9.1-12.4); NEUTROPHILS PERCENT AUTO 71 % (41-73); Platelet Count 116 K/mm3 (150-400); RDW Coefficient Variation 20.3 % (11.7-14.2); RDW Standard Deviation 70.1 fL (35.1-46.3); Red Blood Cell Count 2.25 M/mm3 (3.80-5.20); White Blood Cell Count 3.78 K/mm3 (4.00-11.30)
[2021-06-14 02:48] LABS: Albumin, Blood 2.6 g/dL (3.4-5.0); Anion Gap 8 mmol/L (6-16); Blood Urea Nitrogen 21 mg/dL (8-24); Bun/Creatinine Ratio 10.6 (12.0-20.0); CO2, Blood 17 mmol/L (21-32); Calcium, Blood 8.1 mg/dL (8.5-10.1); Chloride, Blood 109 mmol/L (98-108); Creatinine, Blood 1.99 mg/dL (0.40-1.00); Glomerular Filtration Rate 27 (60-); Glucose, Blood 86 mg/dL (70-99); Phosphorus, Blood 3.8 mg/dL (2.5-4.9); Potassium, Blood 4.4 mmol/L (3.5-5.5); Sodium, Blood 134 mmol/L (136-145)
[2021-06-14 02:50] LABS: Mean Corpuscular Volume 99 fL (80-100)
[2021-06-14 09:23] LABS: Albumin, Blood 2.6 g/dL (3.4-5.0); Anion Gap 10 mmol/L (6-16); Blood Urea Nitrogen 21 mg/dL (8-24); Bun/Creatinine Ratio 10.3 (12.0-20.0); CO2, Blood 17 mmol/L (21-32); Calcium, Blood 8.5 mg/dL (8.5-10.1); Chloride, Blood 108 mmol/L (98-108); Creatinine, Blood 2.03 mg/dL (0.40-1.00); Glomerular Filtration Rate 27 (60-); Glucose, Blood 78 mg/dL (70-99); Potassium, Blood 4.6 mmol/L (3.5-5.5); Sodium, Blood 135 mmol/L (136-145)
--- NOTE | 2021-06-14 09:40 | NUR ---
Pt resting in recliner chair upon arrival. Pt's mother and father at bedside. Pt is somnolant and appears with altered mentation. Mother reports this symptom is new from yesterday. Mother intermittently tearful and emotional support offered. Spoke with Primary RN Allyson and discussed case. Spoke with Dr Curiel and discussed case. Dr Curiel to Pt's room and reviews plan of care with Pt's parents. Plan for MRI, blood transfusion and labs. Palliative Care will remain available for supportive and therapeutic visits.
[2021-06-14 09:54] LABS: Base Excess Venous -9.5 mmol/L; Bicarbonate Venous 17.2 mmol/L (24.0-30.0); PCO2 Venous 36.9 mmHg (38-42); pH Blood Venous 7.28 (7.34-7.37)
--- NOTE | 2021-06-14 13:25 | NUR ---
REASSESSMENT PT CONTINUES TO BE QUITE LETHARGIC. SHE DOES WAKE TO VOICE WITH SOME EFFORT AND THEN WILL BE ALERT ENOUGH TO MOVE AROUND, WAS ABLE TO GET FROM THE CHAIR TO THE BED WITH THE WALKER. SHE IS ORIENTED TO PERSON AND PLACE. SINCE SHE WAS MORE LETHARGIC THEN YESTERDAY DR. OLIVARES ASKED FOR THE MRI TO BE TRIED AGAIN. TOOK PT DOWN TO MRI AND SHE WAS UNABLE TO LAY FLAT DUE TO HIP PAIN. TRIED POSITIONING PILLOWS UNDER HER, BUT PT KEPT SITTING RIGHT BACK UP SO UNABLE TO DO MRI. LUNGS ARE CLEAR, BUT VERY DIM. SR, BP STABLE. PT WAS ABLE TO TAKE HER PILLS SAFEYL, BUT HAD NO APPETITE FOR BREAKFAST OR LUNCH. PT VOIDED ON THE COMMODE, BUT ONLY 100ML. RENAL ULTRASOUND OCCURRING NOW AND WILL STRAIGHT CATH IF BLADDER IS FULL PER DR. OLIVARES. PT'S FAMILY HAS BEEN AT THE BEDSIDE ALL MORNING. THEY HAVE BEEN VERY EMOTIONAL AND TEARFUL. SUPPORT GIVEN. PALLIATIVE SPOKE WITH PT'S PARENTS THIS MORNING WELL.
[2021-06-14 14:25] LABS: Source, Urine Foley catheter
[2021-06-14 14:51] LABS: Appearance, Urine Clear (Clear); Bilirubin, Urine Neg (Neg); Blood, Urine Neg (Neg); Color, Urine Yellow (P-Yellow); Glucose Qualitative, Urine Neg (Neg); Ketones, Urine Neg (Neg); Leukocyte Esterase, Urine Neg (Neg); Nitrite, Urine Neg (Neg); Protein, Urine 1+ (Neg); Specific Gravity, Urine 1.015 (1.003-1.022); Urobilinogen, Urine NORM (Normal); pH, Urine 6.5 (5.0-8.0)
--- NOTE | 2021-06-14 16:18 | NUR ---
Multiple visits today. Pt remains somnolant with her mother and dad at bedside throughout the day. Offered therapeutic listening and reviewed current plan of care. Parents are experiencing significant anticapatory grief. Validated concerns and answered questions. Family express appreciation. Palliative Care will remain available.
[2021-06-14 16:51] LABS: Base Excess Venous -5.6 mmol/L; Bicarbonate Venous 20.1 mmol/L (24.0-30.0); pH Blood Venous 7.33 (7.34-7.37)
[2021-06-14 17:09] LABS: Hematocrit 24.4 % (33.0-51.0)
--- NOTE | 2021-06-14 17:31 | NUR ---
SHIFT SUMMARY PT HAS CONTINUED TO BE VERY LETHARGIC THROUGHOUT THE SHIFT. THIS MORNING SHE WAS ABLE TO STAY AWAKE LONG ENOUGH TO HOLD HER OWN CUP OF JUICE TO TAKE HER PILLS, BUT THIS AFTERNOON SHE COULDN'T. SHE WAS STILL ABLE TO GET UP TO THE COMMODE WITH ASSISTANCE THIS AFTERNOON, BUT WAS UNABLE TO VOID. SPOKE WITH DR. OLIVARES AFTER THAT AND RECEIVED OK TO PLACE PATHAK PT HAD SOME RETENTION ON THE LAST SHIFT. LUNGS ARE CLEAR BUT VERY DIM. SR, BP STABLE WITH SBP IN THE 130S. FENTANYL PATCH SWITCHED TO 100MCG PATCH TODAY ORDERED BY DR. OLIVARES, NO OTHER PAIN MEDICATION GIVEN SINCE MORNING MED PASS. PT'S FAMILY REMAINS AT THE BEDSIDE AND MULTIPLE OTHER VISITORS HAVE BEEN IN AND OUT. PALLIATIVE MET WITH PT'S PARENTS. CONTINUING TO MONITOR.
[2021-06-14 17:41] LABS: Albumin, Blood 2.8 g/dL (3.4-5.0); Anion Gap 7 mmol/L (6-16); Blood Urea Nitrogen 26 mg/dL (8-24); Bun/Creatinine Ratio 11.5 (12.0-20.0); CO2, Blood 21 mmol/L (21-32); Calcium, Blood 8.8 mg/dL (8.5-10.1); Chloride, Blood 108 mmol/L (98-108); Creatinine, Blood 2.26 mg/dL (0.40-1.00); Glomerular Filtration Rate 23 (60-); Glucose, Blood 100 mg/dL (70-99); Phosphorus, Blood 4.6 mg/dL (2.5-4.9); Potassium, Blood 4.5 mmol/L (3.5-5.5); Sodium, Blood 136 mmol/L (136-145)
--- NOTE | 2021-06-14 20:01 | NUR ---
ASSUMED CARE RECEIVED REPORT FROM EARL ALRBIGHT AT 1900. PT IS LETHARGIC AND SOMNOLENT, EYELIDS ONLY FLICKER TO VOICE. UNABLE TO FOLLOW COMMANDS, NO PURPOSEFUL MOVEMENTS. RIGHT PUPIL 4MM AND FIXED, LEFT PUPIL 2MM AND SLUGGISH, NO CHANGE FROM DAY SHIFT. CURRENTLLY HAS 100MCG FENTANYL PATCH IN PLACE TO RIGHT ARM. CPN INFUSING INTO MEDIPORT IN RIGHT UPPER CHEST. PG TO HALLIE NASCIMENTO. HR IS SR WITH RATE IN 70-80'S. BP HYPERTENSIVE, PT HAS HX OF HTN AND UNABLE TO GIVE PO MEDICATIONS D/T SOMNOLENCE. GENERALIZED EDEMA, +2 IN BUE AND BLE. LUNGS CLEAR THROUGHOUT, SPO2 96% ON ROOM AIR, RR <10. BT ACTIVE X4. PATHAK DRAINING TO GRAVITY, CLOUDY YELLOW URINE IN BAG. MULTIPLE FAMILY MEMBERS PRESENT AT BEDSIDE. ORDERS REVIEWED.
--- NOTE | 2021-06-14 20:44 | NUR ---
ATTEMPTED TO AROUSE AND ASSESS FOR PO MEDICATION CAPABILITY. PT OPENED EYES WHEN PILLOW WAS REMOVED FROM HER HEAD AND THEN WAS ABLE TO NOD HEAD SLIGHTLY YES OR NO TO SIMPLE QUESTIONS. SHE STILL REMAINS VERY SOMNOLENT AND HAS DIFFICULTY REMAINING AWAKE.
--- NOTE | 2021-06-14 22:26 | NUR ---
REASSESSED FOR PO MED INTAKE. PT WAS ABLE TO OPEN EYES AND ANSWER YES/NO QUESTIONS. ABLE TO TAKE PO MEDS WITHOUT DIFFICULTY AND SHE IS BECOMING MORE ALERT.
--- NOTE | 2021-06-15 00:03 | NUR ---
REASSESSMENT PT REMAINS SOMNOLENT, BUT AROUSES TO VOICE AND TOUCH. ABLE TO ASSIST WITH TURNS, BUT NEEDS CONSTANT DIRECTION. UNABLE TO STATE WHERE SHE IS AT, BUT ANSWERS YES/NO QUESTIONS. DENIES PAIN OR NAUSEA. PUPILS REMAIN UNCHANGED, 4MM RIGHT AND FIXED, 2MM ON LEFT WITH SLUGGISH REACTION TO LIGHT. WHEN SHE OPENS HER EYES, HER RIGHT EYE REMAINS MOSTLY CLOSED. HR CONTINUES SR WITH RATE 70-90'S, BP CONTINUES HYPERTENSIVE DESPITE ORAL MEDS PER EMAR. LUNGS CLEAR AND SPO2 >96% ON ROOM AIR, RR VARIES BUT >10. PATHAK DRAINING TO GRAVITY, YELLOW URINE. AFEBRILE.
--- NOTE | 2021-06-15 04:16 | NUR ---
REASSESSMENT PT CONTINUES TO BE LETHARGIC AND SOMNOLENT BUT MENTATION SEEMS TO IMPROVE SOME. SHE STATES SHE IS IN [place] AND ABLE TO FOLLOW SIMPLE COMMANDS. SHE BECOMES AGITATED WITH REPOSITIONING AND IS RESISTANT D/T PAIN; HOWEVER, WHEN ASKED, SHE DENIES PAIN. HR IS NSR IN 70-90'S, BP HYPERTENSIVE WITH SYSTOLIC BP IN 140'S, DIASTOLIC IN 90'S. LUNGS REMAIN CLEAR, SPO2 >96% ON ROOM AIR. PATHAK PATENT, DRAINING TO GRAVITY. AFEBRILE. LABS DRAWN AND SENT.
[2021-06-15 04:18] LABS: Hematocrit 24.7 % (33.0-51.0); Hemoglobin 8.1 g/dL (11.5-16.0)
[2021-06-15 04:43] LABS: Albumin, Blood 2.5 g/dL (3.4-5.0); Albumin/Globulin Ratio 0.7 (0.8-1.8); Bilirubin, Direct 1.9 mg/dL (0.0-0.3); Bilirubin, Indirect 0.4 mg/dL (0.1-0.7); Bilirubin, Total 2.3 mg/dL (0.1-1.0); Bun/Creatinine Ratio 12.6 (12.0-20.0); Calcium, Blood 8.4 mg/dL (8.5-10.1); Creatinine, Blood 2.31 mg/dL (0.40-1.00); Globulin, Blood 3.8 g/dL (2.2-4.0); Magnesium, Blood 2.4 mg/dL (1.6-2.4); Phosphorus, Blood 4.7 mg/dL (2.5-4.9); Potassium, Blood 4.5 mmol/L (3.5-5.5); Thyroid Stimulating Hormone 1.4 uIU/mL (0.360-4.800); Total Protein, Blood 6.3 g/dL (6.4-8.2); Uric Acid, Blood 8.5 mg/dL (2.6-6.0)
--- NOTE | 2021-06-15 05:56 | NUR ---
PT REMAINED SOMNOLENT THROUGHOUT SHIFT AND SEEMS TO HAVE APPEARED TO HAVE SLEPT OFF AND ON. SHE REMAINS ALERT TO HERSELF AND SURROUNDINGS. SHE IS ABLE TO FOLLOW SIMPLE COMMANDS AND RESPONDS TO VOICE. SHE HELPS WITH REPOSITIONING BUT DOES NOT WANT TO LAY ON SIDES D/T PAIN. SHE REMAINED ON ROOM AIR, SPO2 >96%, LUNGS CLEAR. HR STAYED SR WITH RATE IN 70-90'S, BP CONTINUES HYPERTENSIVE DESPITE MEDICATIONS. 200ML FREE WATER PO INTAKE. PATHAK REMAINS PATENT, 1200ML JONN URINE OUT. NO BOWEL MOVEMENT THIS SHIFT. CLINAMIX REMAINS ON AT 50ML/HR. AFEBRILE. MEDICATED WITH ZOFRAN AND PRN FENTANYL X1 THIS SHIFT. WILL REPORT TO ONCOMING SHIFT WHEN AVAILABLE.
--- NOTE | 2021-06-15 07:02 | NUR ---
DR. BREAUX AT BEDSIDE, ORDERS GIVEN TO CHANGE SODIUM CHLORIDE TABS TO 1GM QD, DISCONTINUE TID. LAXIX 20MG IV ONCE TODAY. CONTINUE CLINAMIX AT 50ML/HR. DR. OLIVARES AT BEDSIDE TO ASSESS PT. PT'S MOTHER AND FATHER AT BEDSIDE.
--- NOTE | 2021-06-15 08:30 | NUR ---
ASSUMED CARE REPORT FROM SHANNA ELLIOTT AT 0700. PT RESTING IN BED. UPON INITIAL NEURO EXAM, PT OPENS EYES TO VERBAL STIMULI, FOLLOWS SIMPLE COMMANDS. PROGRESSES TO INTERACTING c FAMILY. ABLE TO MAKE NEEDS KNOWN. OCCASIONALLY C/O PAIN, MEDICATED c FENTANYL ORDERED. RIGHT PUPIL 4 MM, NON REACTIVE, LEFT 3MM REACTIVE. A&OX 2. ABLE TO SWALLOW PO MEDS. SR ON MONITOR, RATE 70'S. HTN NOTED, HOME MEDS GIVEN. PT MINIMALLY COOPERATIVE c TURNS, ALLOWS ONLY SLIGHT REPOSITIONING. PATHAK PATENT, DRAINING CLEAR YELLOW URINE TO GRAVITY. CLINIMIX AT 50 ML/HR VIA MEDIPORT, POWERGLIDE TO RUE, DRESSINGS C/D/I. WILL CONTINUE TO MONITOR.
--- NOTE | 2021-06-15 10:46 | NUR ---
Pt resting in bed with her eyes closed. Pt briefly opens her eyes to verbal stimuli and verbal response is minimal. Pt appears comfortable with no S/S of distress at this time. Pt's Primary RN not available at this time. Spoke with Dr Curiel and discussed case. Dr Curiel will consider dexamethasone to assist with pain management. Spoke with YOVANNY Veloz and discussed case. Palliative Care will remain available.
--- NOTE | 2021-06-15 15:26 | NUR ---
Spiritual Care Visit - "What we care to know" Pt. is sitting up in chair and displays evidence of pain and discomfort. Family members are present. Fill out "What we care to know" survey questions with pt. and family members present. Glide for pt. Family members verbalize gratitude for the spiritual care visit. Stop by ICU waiting lounge and visit with Pts. mother and step dad. Complete "What we care to know" bending roll operator and post it in ICU-11.
[2021-06-15 16:14] LABS: Albumin, Blood 2.7 g/dL (3.4-5.0); Anion Gap 7 mmol/L (6-16); Blood Urea Nitrogen 35 mg/dL (8-24); Bun/Creatinine Ratio 15.4 (12.0-20.0); CO2, Blood 20 mmol/L (21-32); Calcium, Blood 8.7 mg/dL (8.5-10.1); Chloride, Blood 108 mmol/L (98-108); Creatinine, Blood 2.27 mg/dL (0.40-1.00); Glomerular Filtration Rate 23 (60-); Glucose, Blood 124 mg/dL (70-99); Phosphorus, Blood 5.3 mg/dL (2.5-4.9); Potassium, Blood 4.7 mmol/L (3.5-5.5); Sodium, Blood 135 mmol/L (136-145)
--- NOTE | 2021-06-15 18:12 | NUR ---
SHIFT SUMMARY PT CONTINUES TO HAVE WAXING AND WAINING PERIODS REGARDING HER MENTATION. AT TIMES SHE INTERACTS APPROPRIATELY c FAMILY AND MAKES COHERANT STATEMENTS, OTHER TIMES SHE IS SOMULENT AND DIFFICULT TO WAKE AND OTHER TIMES SHE IS HAVING DELUSIONS. FAMILY IS ABLE TO COMFORT AND CALM PT. CAN BE DIFFICULT TO REDIRECT. PT INITIALLY REQUIRED STANDBY ASSIST TO GET TO CHAIR, THIS EVEN WAS A FULL ASSIST BACK TO BED. PT UNABLE TO LAY FLAT FOR MRI, DR FRANK AWARE. TOLERATED PO FLUIDS WELL, DECLINED ALL MEALS. CLINIMIX CONTINUES THROUGH [facility]. VSS. REPORT TO STEPHANIE ELLIOTT. PT TRANSFERRED TO PCU 20, ALL BELONGINGS SENT c PT.
--- NOTE | 2021-06-15 18:16 | NUR ---
PT ARRIVED TO ROOM PCU20 VIA BED FROM ICU11. PT TRANSFERED FROM ONE BED TO ANOTHER WITH SLIDER SHEET, PT TOLERATED WELL. PT IS AWAKE AND ALERT AT THIS TIME, STATES SHE IS HAPPY TO BE OUT OF ICU. FAMILY AT BEDSIDE. BELONGINGS BROUGHT FROM ICU WITH PT. MEDIPORT IS ACCESSED AND CLINIMIX IS INFUSING PER ORDERS. PT ORIENTED TO CALL LIGHT, ROOM AND UNIT ROUTINES. NO QUESTIONS OR CONCERNS FROM PT OR FAMILY. CALL LIGHT IN REACH, WILL CONTINUE TO MONITOR AND GIVE REPORT TO ONCOMING SHIFT RN.
--- NOTE | 2021-06-15 19:47 | NUR ---
ASSUMED CARE OF PATIENT AT APPROXIMATELY 190 FROM STEPHANIE Dean RN. PATIENT DROWSY; SLEEPS WHEN NO ONE IS IN ROOM. FAMILY WAS BEDSIDE AT START OF SHIFT AND LEFT BEFORE 1900. NO S/S OF PAIN NOTED. SR 60-70'S ON TELE; OXYGEN SATURATION ABOVE 90% ON ROOM AIR. MEDIPORT RU CHEST INFUSING CLINIMIX. PG PILY S/L. BED WAS PLUGGED IN AND BED ALARM SET. PATHAK DRAINING TO GRAVITY.
--- NOTE | 2021-06-15 23:04 | NUR ---
PATIENT OCCASIONALLY LOOKS UP TO THE CEILING TOWARDS HER LEFT AND STARES AND NODS HEAD; WHEN ASKED IF SHE IS LOOKING AT SOMETHING PARTICULAR; PATIENT STATES "NO". PATIENT CALLED OUT INTO HALLWAY ABOUT A MOVIE BEING TERRIBLE AND SOMETHING ABOUT A SECOND RUN BEING BAD. PATIENT CURRENTLY DENIES PAIN; PATIENT REQUESTED WATER; FRESH ICE WATER GIVEN.
--- NOTE | 2021-06-15 23:25 | NUR ---
PATIENT REPORTS "THEY MAKE ME LOOK RIGHT"; PATIENT ALSO REQUESTING PIZZA AND STATES SHE HASNT EATEN IN A LONG TIME; PATIENT DID NOT WANT ANYTHING FROM [facility] BUT REPORTS WILL EAT PIZZA TOMORROW
--- NOTE | 2021-06-16 00:15 | NUR ---
PATIENT REQUESTED A SNACK; SPOON FED ONE VANILLA PUDDING, VANILLA YOGURT, AND APPLESAUCE. PATIENT ABLE TO DRINK ICE WATER INDEPENDENTLY. PATIENT ASKED WHAT IS OPEN RIGHT NOW FOR FOOD. PATIENT REPORTS SHE IS FULL AND MIGHT CALL HER MOTHER LATER TO BRING HER TAKE OUT. NO OTHER ACUTE CHANGES.
[2021-06-16 03:53] LABS: BASOPHILS PERCENT AUTO 0 % (0-2); EOSINOPHILS PERCENT AUTO 0 % (0-6); Hematocrit 24.9 % (33.0-51.0); Hemoglobin 8.4 g/dL (11.5-16.0); IMMATURE GRAN ABSOLUTE AUTO 0.16 K/mm3 (0.00-0.10); IMMATURE GRAN PERCENT AUTO 4 % (0-1); LYMPHOCYTES ABSOLUTE AUTO 0.35 K/mm3 (0.84-5.20); LYMPHOCYTES PERCENT AUTO 10 % (21-46); MONOCYTES ABSOLUTE AUTO 0.36 K/mm3 (0.16-1.47); MONOCYTES PERCENT AUTO 10 % (4-13); Mean Corpuscular HGB 31.6 pg (26.0-34.0); Mean Corpuscular HGB Conc 33.7 g/dL (31.5-36.5); Mean Platelet Volume 8.4 fL (9.1-12.4); NEUTROPHILS ABSOLUTE AUTO 2.79 K/mm3 (1.96-9.15); NEUTROPHILS PERCENT AUTO 76 % (41-73); Platelet Count 152 K/mm3 (150-400); RDW Coefficient Variation 20.1 % (11.7-14.2); RDW Standard Deviation 68.8 fL (35.1-46.3); Red Blood Cell Count 2.66 M/mm3 (3.80-5.20); White Blood Cell Count 3.66 K/mm3 (4.00-11.30)
[2021-06-16 03:57] LABS: Mean Corpuscular Volume 94 fL (80-100)
[2021-06-16 04:10] LABS: Albumin, Blood 2.5 g/dL (3.4-5.0); Albumin/Globulin Ratio 0.7 (0.8-1.8); Bilirubin, Total 1.8 mg/dL (0.1-1.0); Bun/Creatinine Ratio 18.8 (12.0-20.0); Calcium, Blood 8.4 mg/dL (8.5-10.1); Creatinine, Blood 2.24 mg/dL (0.40-1.00); Globulin, Blood 3.8 g/dL (2.2-4.0); Magnesium, Blood 2.1 mg/dL (1.6-2.4); Phosphorus, Blood 5.9 mg/dL (2.5-4.9); Potassium, Blood 4.5 mmol/L (3.5-5.5); Total Protein, Blood 6.3 g/dL (6.4-8.2)
--- NOTE | 2021-06-16 04:42 | NUR ---
PATIENT AGITATED AND CONFUSED THIS MORNING. STATING "IF YOU GUYS CONSCIOUSLY THINK A FAT PERSON WITH A FAT PERSON BBQ". PATIENT STATED SHE WANTED TO TALK TO HER MOM; CELL PHONE CALLED AND PATIENT TALKED TO HER MOM AND CALMED DOWN.
--- NOTE | 2021-06-16 06:39 | NUR ---
PATIENT VERY ANXIOUS AT ONE POINT AND CALLED MOTHER. MOTHER AND FATHER CAME INTO VISIT AROUND 0430 THAT HELPED TO CALM PATIENT. PATIENT ALSO COMPLAINED OF PAIN IN THE "MIDDLE OF MY SPINE"; MEDICATED PER EMAR WITH IV FENTANYL WITH GOOD RESULTS. PATIENT'S PARENTS ARE NO LONGER IN ROOM; PATIENT EXPRESSED SHE WOULD LIKE PIZZA AND SEE HER DOGS TODAY TO HER PARENTS. MOTHER JOSE RAUL REPORTS PATIENT IS DOING BETTER.
--- NOTE | 2021-06-16 06:47 | NUR ---
DR. BREAUX WAS BEDSIDE; ORDERS FOR IV LASIX 40 X 1 AND DISCONTINUE SODIUM TABLETS.
--- NOTE | 2021-06-16 06:52 | NUR ---
DR. OLIVARES BEDSIDE; PATIENT COMPLAINING OF LOWER LEFT BACK PAIN; IV FENTANYL GIVEN LESS THAN AN HOUR AGO; VERBAL EARLY TO GIVE PO BACLOFEN EARLY.
--- NOTE | 2021-06-16 08:56 | NUR ---
Supportive visit this AM. Pt resting in bed with her eyes closed. Pt's parents at bedside. Pt appears comfortable with no S/S of distress at this time. Offered therapeutic listening as parents report seeing improvement with Pt. Parents appear more relaxed and hopeful today. Continued therapeutic listening. Family express appreciation and report no concerns at this time. Spoke with Primary RN Sanam and discussed case. Palliative Care will remain available.
--- NOTE | 2021-06-16 12:16 | NUR ---
PATIENT UNABLE TO LAY DOWN DUE TO PAIN. UNABLE TO TOLERATE CT OF ABDOMEN AT THIS TIME. DR. BREAUX CALLED AND AWARE. ORDERS TO OBTAIN CT OF ABDOMEN WO CONTRAST WHEN ABLE. WILL RE-EVALUTE AND ORDER WHEN ABLE. CHIEF ADMINISTRATIVE OFFICER CALLED AND MADE AWARE, ASKED THIS RN TO DC ORDER AND PLACE FRESH ORDER WHEN PATIENT ABLE. DITCHING MACHINE ENGINEER AWARE AND WILL ENSURE INFORMATION IS ON REPORT SHEET AND REPORTED OFF TO NEXT RN.
--- NOTE | 2021-06-16 13:22 | NUR ---
ASSUMPTION OF CARE: THIS RN TO TAKE OVER CARE AT 1100, AGREES WITH PRIOR SHIFT ASSESSMENT DOCUMENTED. ALERT TO SELF, FAMILY AND MOST OF SITUATION. INTERMITTENT CONFUSION. FOR THE MOST PART ALERT AND ORIENTED. DROWSY AND SLEEPY WITH PAIN MEDICATIONS. ABLE TO MOVE ALL EXTREMITIES. SEEMS TO BE WEAK IN BILATERAL LEGS. RIGHT PUPIL LARGER AND EYELID DROOPY COMPARED TO LEFT. OCCASIONAL OFF THE WALL COMMENTS. FAMILY AT BEDSIDE STATES NO NEW NEURO CHANGES. DR. OLIVARES AT BEDSIDE THIS AFTERNOON AND UPDATED THIS RN ON NEURO DURING HOSPITAL STAY. DENIES CHEST PAIN/PRESSURE. TELE SHOWING SINUS RHYTHM WITH HR 80-90'S. BP SLIGHTLY ELEVATED AT TIMES. ON ROOM AIR, LUNGS SOUNDING CLEAR. DENIES COUGH. DENIES ABDOMINAL PAIN/NAUSEA. PATHAK CATH IN PLACE DRAINING CLEAR/YELLOW URINE. EATING SMALL AMOUNTS. FAMILY BROUGHT IN PIZZA, PATIENT HAPPY. COMPLAINS OF MIDLINE BACK PAIN, MEDICATED PER EMAR. SPOKE WITH DR. OLIVARES ABOUT PAIN MANAGEMENT. WILL CONTINUE TO MONITOR AND ASSESS. MAX ASSIST WITH GAIT BELT WHEN MOVING. SCATTERED SCABS TO HANDS. FAMILY AT BEDSIDE, VISITING. DENIES NEEDS AT THIS TIME. SEE PREVIOUS NOTE AND NURSE NOTIFY ORDER REGARDING ABDOMINAL CT. WILL CONTINUE TO MONITOR.
--- NOTE | 2021-06-16 17:56 | NUR ---
SHIFT SUMMARY: SEE PREVIOUS NOTE FOR MAIN UPDATES. NO ACUTE CHANGES. PATIENT SEEMS MORE ALERT AND ORIENTED WITH FAMILY PRESENT. AT TIMES CONFUSING STATEMENTS. MULTIPLE VISITORS THOUGHOUT THE DAY, HELPING KEEP PATIENT SPIRITS UP. DR. OLIVARES BY MULTIPLE TIMES TO CHECK IN WITH FAMILY AND DISCUSS PLANS/GOALS MOVING FORWARD. FAMILY VERY APPRECIATIVE OF CARE. MEDICATED TWICE THIS SHIFT WITH PRN PAIN MEDS. AFTER BOTH ADMINISTRATION OF PAIN MEDS PATIENT WOULD NAP FOR APPROX ONE HOUR. DROWSY FOR A FEW HOURS AFTER PAIN MEDS OVERALL. PAIN BROUGHT DOWN FROM 20/10 TO 4/10 TODAY. SEEMS TO BE MUCH MORE COMFORTABLE THROUGHOUT SHIFT. APPETITE INCREASING, EATING PIZZA WITH FAMILY IN AFTERNOON. NO CHANGES IN TELE, BP REMAINS SLIGHTLY ELEVATED AT TIMES. REMAINS ON ROOM AIR. MAIN COMPLAINTS OF PAIN IN BACK, NOT ABLE TO LAY FLAT. SEE PREVIOUS NOTE CONCERNING ABDOMINAL CT WO CONTRAST. CLINIMIX CONTINUES TO INFUSE VIA MEDIPORT. POWERGLIDE SALINE LOCKED. FLUID RESTRICTION MAINTAINED. WILL CONTINUE TO MONITOR AND REPORT OFF.
--- NOTE | 2021-06-16 20:14 | NUR ---
ASSUMED CARE OF PATIENT AT APPROXIMATELY 1900 FROM LB Samuel RN. PATIENT DROWSY; SLEEPS WHEN NO ONE IS IN ROOM; WAKES TO VERBAL STIMULUS; CONFUSED AT TIMES; MAKES ODD STATES; SLOW TO RESPOND. PATIENT REPORTS SHE IS COMFORTABLE AT THIS TIME. NO S/S OF PAIN NOTED. SR 60-70'S ON TELE; OXYGEN SATURATION ABOVE 90% ON ROOM AIR. MEDIPORT RU CHEST INFUSING CLINIMIX. PG PILY S/L. PATHAK DRAINING TO GRAVITY. BOGGER OPERATOR DOMINICK Saldivar ASSISTING WITH CARE
[2021-06-17 04:46] LABS: BASOPHILS PERCENT AUTO 0 % (0-2); EOSINOPHILS PERCENT AUTO 0 % (0-6); IMMATURE GRAN ABSOLUTE AUTO 0.19 K/mm3 (0.00-0.10); IMMATURE GRAN PERCENT AUTO 4 % (0-1); LYMPHOCYTES ABSOLUTE AUTO 0.33 K/mm3 (0.84-5.20); LYMPHOCYTES PERCENT AUTO 7 % (21-46); MONOCYTES ABSOLUTE AUTO 0.52 K/mm3 (0.16-1.47); MONOCYTES PERCENT AUTO 11 % (4-13); Mean Corpuscular HGB 30.2 pg (26.0-34.0); Mean Corpuscular HGB Conc 32.1 g/dL (31.5-36.5); Mean Corpuscular Volume 94 fL (80-100); Mean Platelet Volume 8.5 fL (9.1-12.4); NEUTROPHILS ABSOLUTE AUTO 3.68 K/mm3 (1.96-9.15); NEUTROPHILS PERCENT AUTO 78 % (41-73); Platelet Count 170 K/mm3 (150-400); RDW Coefficient Variation 20.1 % (11.7-14.2); Red Blood Cell Count 2.98 M/mm3 (3.80-5.20); White Blood Cell Count 4.72 K/mm3 (4.00-11.30)
[2021-06-17 05:08] LABS: Albumin, Blood 2.8 g/dL (3.4-5.0); Anion Gap 9 mmol/L (6-16); Blood Urea Nitrogen 48 mg/dL (8-24); Bun/Creatinine Ratio 23.6 (12.0-20.0); CO2, Blood 22 mmol/L (21-32); Calcium, Blood 8.5 mg/dL (8.5-10.1); Chloride, Blood 106 mmol/L (98-108); Creatinine, Blood 2.03 mg/dL (0.40-1.00); Glomerular Filtration Rate 27 (60-); Glucose, Blood 120 mg/dL (70-99); Magnesium, Blood 2.2 mg/dL (1.6-2.4); Phosphorus, Blood 6.2 mg/dL (2.5-4.9); Potassium, Blood 4.3 mmol/L (3.5-5.5); Sodium, Blood 137 mmol/L (136-145)
--- NOTE | 2021-06-17 06:32 | NUR ---
PATIENT SLEPT ABOUT FIVE HOURS; CALLED OUT INTO HALLWAY; IRRITATED AT TIMES; PATIENT REPORTS SHE SEEN A LADY IN AN OLD CARE DRY BY AT ONE POINT. PATIENT REPEATEDLY CALLED FOR PAIN MEDICATION; TELEGRAPH REPEATER TECHNICIAN GAVE PATIENT HEATING PAD; DR. BREAUX WAS BEDSIDE; ORDER FOR IV LASIX 20MG.
--- NOTE | 2021-06-17 11:57 | NUR ---
Pt resting in bed with her eyes opened. Pt briefly opens her eyes to respond to my presence. Pt appears comfortable with no S/S of distress at this time. Pt's parents at bedside. Offered therapeutic listening. Family expresses appreciation of the care Pt is receiving. Family report seeing improvement with Pt and remains optimistic. Continued therapeutic listening. Spoke with Primary RN Angeline and discussed case. Palliative Care will remain available.
--- NOTE | 2021-06-17 17:41 | NUR ---
SHIFT SUMMARY PT REMAINS ALERT AND ORIENTED. PT IS DROWSY THIS AFTERNOON AND SLEEPS WHEN NOT STIMULATED BY STAFF. O2 SATS REMAIN ABOVE 90% ON RA. PT COMPLAINS OF PAIN TO HER BACK AND MEDICATED PER EMAR. HEATING PAD OFFERED, BUT PT REFUSES AT THIS TIME. FENTANYL PATCH IN PLACE PER ORDERS. PATHAK PATENT AND DRAINING CLEAR YELLOW URINE. NO BM THIS SHIFT. PT STARTED ON MIRILAX TODAY. PT REPOSITIONED Q2H. BED BATH PROVIDED TODAY. CLINIMIX INFUSING PER ODERS. FAMILY AT BEDSIDE. WILL CONTINUE TO MONITOR AND REPORT TO ONCOMING RN
--- NOTE | 2021-06-17 18:13 | NUR ---
RECEIVED REPORT ON PT COMING TO ROOM 364 FROM VENTURA ELLIOTT. PCU
--- NOTE | 2021-06-17 18:40 | NUR ---
PT RECEIVED TO ROOM AT 1835. FAMILY IN ROOM AT BEDSIDE. PT ALERT TO SELF, FAMILY, TALKING LOUDLY WITH VISITORS. PRESENTLY ON CLINIMIX. INFUSING TO MEDIPORT. BED IN LOW POSITION, CALL LITE IN REACH, BED ALARM ON FOR SAFETY
[2021-06-18 04:53] LABS: Hematocrit 27.2 % (33.0-51.0); Hemoglobin 8.8 g/dL (11.5-16.0)
[2021-06-18 05:10] LABS: Albumin, Blood 2.9 g/dL (3.4-5.0); Anion Gap 9 mmol/L (6-16); Blood Urea Nitrogen 52 mg/dL (8-24); Bun/Creatinine Ratio 29.4 (12.0-20.0); CO2, Blood 23 mmol/L (21-32); Calcium, Blood 8.3 mg/dL (8.5-10.1); Chloride, Blood 105 mmol/L (98-108); Creatinine, Blood 1.77 mg/dL (0.40-1.00); Glomerular Filtration Rate 31 (60-); Glucose, Blood 119 mg/dL (70-99); Magnesium, Blood 2.1 mg/dL (1.6-2.4); Phosphorus, Blood 6.6 mg/dL (2.5-4.9); Potassium, Blood 4.6 mmol/L (3.5-5.5); Sodium, Blood 137 mmol/L (136-145)
--- NOTE | 2021-06-18 05:46 | NUR ---
SUMMARY PT WOKE UP COMPLAINING OF SEVERE PAIN IN HER BACK. PT WAS GIVEN PO PAIN MEDS ORDERED. PT CONTINUED TO COMPLAIN OF SEVERE BACK PAIN AND WAS YELLING OUT. DR MCFARLAND CALLED AND ORDERED IV FENTANYL. PT TX WITH RELIEF. PT HAS BEEN SOMNOLENT THROUGH OUT SHIFT. WAKING UP ONLY WHEN IN PAIN. PT CURRENTLY SLEEPING. PT CONTINUES TO HAVE PERIODS OF APNEA. CONTINOUS BIOX ON PT, SPO2 >90%. PATHAK DRAINING TO GRAVITY. CALL LIGHT IN REACH AND BED ALARM ON.
--- NOTE | 2021-06-18 08:09 | NUR ---
SPOKE TO DR BREAUX RE CONSISTANT HIGH BLOOD PRESSURE.
--- NOTE | 2021-06-18 10:00 | NUR ---
SPOKE TO DR BREAUX AND DEPLOYMENT SPECIALIST. OKAY RUN BALANCE OF CLINIMIX AND NEXT BAG PENDING IN FRIDGE. NITRITIONIST STATES THIS IS THE LAST BAG OF CLINIMIX AVAIL IN HOSP. VERIFIED THIS WITH DR BARRIENTOS. AGREED
--- NOTE | 2021-06-18 14:48 | NUR ---
MRI CALLED. PLANNING FOR [phone]FT[address] WITH [address]. SAGASTUME. BACLOFEN WAS GIVEN. GIVE TORI AT 1500. GIVE 12.5 MCG FENTANYL AT TRANSPORT TIME. CAN GIVE ADDL 12.5 IF NEEDS AT MRI.
--- NOTE | 2021-06-18 18:24 | NUR ---
ELEVATED BP. DID MED WITH HYDRALAZINE PER EMAR
--- NOTE | 2021-06-18 18:26 | NUR ---
PT MOSTLY PLEASANT COOP TODAY. TRIED TO DO MRI TODAY. MED WITH WHAT WAS AVAIL PRIOR . DID NOT GET THROUGH MRI. WHEN I WAS TO COME IN TO EXTRA MEDICATE, MRI CALLED AND SAID SHE WAS UNABLE TO DO AT ALL. PT WAS RETURNED. MRI CANCELLED. FAMILY AT BEDSIDE TODAY. PT DID STATE SHE SAW HER 2 DOGS WALKED DOWN PICHARDO THIS AFT. VISUAL HALLUCINATIONS. FAMILY IN ALL T/O DAY. MEDICATED EXTRA FOR HTN WITH HYDRALAZINE THIS TYRONE. WILL FOLLOW ON BP RESULTS. BED IN LOW POSITION, CALL LITE IN REACH, BED ALARM O FOR SAFETY
--- NOTE | 2021-06-19 05:25 | NUR ---
SHIFT SUMMARY: PT IS A/OX2. SHE REMAINS ON CONT. PULSE OX >95% ON RA. ZO IS PATENT W/ CLEAR & JONN URINE. CLINIMIX IS INFUSING VIA MEDIPORT. PT HAS PRN 15 MG OXY Q4; LAST GIVEN @ 0330. BOWEL MEDS GIVEN PER PROTOCOL, BUT NO BM THIS SHIFT. PT'S BP REMAINS HIGH AND PRN HYDRALAZINE GIVEN @ 0415. PT IS RESTING NOW AND WE'LL CONTINUE FREQUENT MONITORING.
[2021-06-19 06:24] LABS: Hematocrit 29.7 % (33.0-51.0); Hemoglobin 9.5 g/dL (11.5-16.0)
[2021-06-19 06:44] LABS: Albumin, Blood 3.1 g/dL (3.4-5.0); Anion Gap 10 mmol/L (6-16); Blood Urea Nitrogen 52 mg/dL (8-24); Bun/Creatinine Ratio 32.7 (12.0-20.0); CO2, Blood 21 mmol/L (21-32); Calcium, Blood 8.9 mg/dL (8.5-10.1); Chloride, Blood 108 mmol/L (98-108); Creatinine, Blood 1.59 mg/dL (0.40-1.00); Glomerular Filtration Rate 35 (60-); Glucose, Blood 130 mg/dL (70-99); Phosphorus, Blood 5.6 mg/dL (2.5-4.9); Potassium, Blood 4.4 mmol/L (3.5-5.5); Sodium, Blood 139 mmol/L (136-145)
--- NOTE | 2021-06-19 08:00 | NUR ---
PT PLEASANT BUT ANXIOUS TODAY. WAS UNABLE TO GET THE MRI YESTERDAY. JUST CANT LAY THAT FLAT. PT CONTINUES TO HAVE TIC IN HEAD, JERKING BACK FROM NORMAL POSITION, A/O X 3 BUT SEEMS TO FADE QUICKLY. RT EYE CONTINUES TO BE UNRESPONSIVE. ABOUT SIZE 5. LID IS DROOPING. MOSTLY CLOSED, OCC IS SLIGHTLY OPEN SOME. SPEECH SOME SLURRED. BUT UNDERSTANDABLE. FAMILY AT BEDSIDE. H/R REG, NO MURMUR NOTED. NO TELE. LUNGS CLEAR, RESP EASY, UNLABORED. HTN NOTED AND TREATED WITH AM MEDS. BT X4 PRESENT BUT HYPOACTIVE, HAS BEEN SEVERAL DAYS SINCE B/M. OBTAINED ORDERS FOR MORE BOWEL CARE MEDS. VOIDS PATHAK CATH. DRAINING YELLOW FLUID. PT PRESENTLY BEDBOUND. BED IN LOW POSITION, CALL LITE IN REACH, BED ALARM ON FOR SAFETY
--- NOTE | 2021-06-19 10:45 | NUR ---
PLACED SUPPOSITORY WITH ASSISTANCE OF VEDA CRAIG AT SIDE. PT DASHAWN WELL. PLACED ON HER SIDE.
[2021-06-19 11:43] LABS: Hematocrit 30.3 % (33.0-51.0); Hemoglobin 9.7 g/dL (11.5-16.0); Mean Corpuscular HGB 30.5 pg (26.0-34.0); Mean Corpuscular Volume 95 fL (80-100); Mean Platelet Volume 8.4 fL (9.1-12.4); NRBC ABSOLUTE 0.03 K/mm3 (0.00-0.02); NRBC Auto 0.4 /100 WBC (0.0-0.2); Platelet Count 227 K/mm3 (150-400); RDW Coefficient Variation 19.8 % (11.7-14.2); RDW Standard Deviation 68.6 fL (35.1-46.3); Red Blood Cell Count 3.18 M/mm3 (3.80-5.20); White Blood Cell Count 7.21 K/mm3 (4.00-11.30)
[2021-06-19 12:09] LABS: BAND PERCENT MAN 6 % (0-8); BASOPHILS PERCENT MAN 0 % (0-2); EOSINOPHILS PERCENT MAN 0 % (0-6); LYMPHOCYTES ABSOLUTE MAN 0.14 K/mm3 (0.84-5.20); LYMPHOCYTES PERCENT MAN 2 % (21-46); METAMYELOCYTE ABSOLUTE MAN 0.07 K/mm3 (0.00-0.00); METAMYELOCYTE PERCENT MAN 1 % (0-0); MONOCYTES ABSOLUTE MAN 1.22 K/mm3 (0.16-1.47); MONOCYTES PERCENT MAN 17 % (4-13); MYELOCYTE ABSOLUTE MAN 0.14 K/mm3 (0.00-0.00); MYELOCYTE PERCENT MAN 2 % (0-0); NEUTROPHILS ABSOLUTE MAN 5.55 K/mm3 (1.96-9.15); PLASMA CELL ABSOLUTE MAN 0.07 K/mm3 (0.00-0.00); PLASMA CELLS PERCENT MAN 1 % (0-0); SEG NEUTROPHILS PERCENT MAN 71 % (41-73); TOTAL CELLS COUNTED 100
--- NOTE | 2021-06-19 16:21 | NUR ---
ENEMA GIVEN THIS AFT. NO RESULTS YET
--- NOTE | 2021-06-19 17:02 | NUR ---
PT HAS BEEN PLEASANT TODAY. TRIED CT SCAN TODAY. WAS UNSUCCESSFUL, EVEN WITH ADDL FENTANYL. FAMILY AT BEDSIDE MOST OF DAY. CONTINUE TO BE ENCOURAGEING. DISCUSSED CALLING PALLIATIVE AND CARE MANAGEMENT TOMORROW. MOTHER AGREED GOOD IDEA. PT CONTINUES TO HAVE HEAD TIC TO BACK. UNABLE TO MAINTAIN LYING FLAT. TRIED ALL BOWEL MEDS AVAIL TODAY, ALONG WITH ENEMA. NO RESULTS YET. WILL COONTINUE. NO OTHER CONCERNS NOTED. IVF OF CLINIMIX ARE DONE, PLACED ON NS FOR MEDIPORT TKO. BED IN LOW POSITIOIN, CALL LITE IIN REACH, BED ALARM ON FOR SAFETY
[2021-06-20 04:31] LABS: Hematocrit 28.6 % (33.0-51.0); Hemoglobin 9.1 g/dL (11.5-16.0)
[2021-06-20 04:57] LABS: Albumin, Blood 3.1 g/dL (3.4-5.0); Anion Gap 10 mmol/L (6-16); Blood Urea Nitrogen 55 mg/dL (8-24); CO2, Blood 23 mmol/L (21-32); Calcium, Blood 9.2 mg/dL (8.5-10.1); Chloride, Blood 107 mmol/L (98-108); Creatinine, Blood 1.62 mg/dL (0.40-1.00); Glomerular Filtration Rate 34 (60-); Glucose, Blood 111 mg/dL (70-99); Magnesium, Blood 1.9 mg/dL (1.6-2.4); Phosphorus, Blood 5.8 mg/dL (2.5-4.9); Potassium, Blood 4.2 mmol/L (3.5-5.5); Sodium, Blood 140 mmol/L (136-145)
--- NOTE | 2021-06-20 05:47 | NUR ---
SHIFT SUMMARY: PT HAS BEEN A/OX SELF. THROUGHOUT THE SHIFT SHE HAS BEEN BECOMING PROGRESSIVELY MORE RESTLESS AND AGITATED. MD AWARE. HER PAIN SEEMS TO BE MORE MANAGABLE, BUT SHE THINKS SHE HAS "TO GET UP AND GO". THE RN AND REHAB NURSE ARE CLOSELY MONITORING THE PT. HER BED/CHAIR ALARMS HAVE BEEN SET.
--- NOTE | 2021-06-20 10:37 | NUR ---
PT REPOSITIONING SELF AT THIS TIME, FAMILY AT BEDSIDE
--- NOTE | 2021-06-20 12:00 | NUR ---
MORNING MEDICATIONS SOME MORNING MEDICATIONS HELD PER PALLIATIVE CARE PATIENT IS TRANSITIONING INTO COMFORT CARE AND SOME ARE TO BE DC'D BY ATTENDING PHYSICIAN.
--- NOTE | 2021-06-20 13:39 | NUR ---
PT FAMILY REPORTS PT IS "FINALLY RESTING", WILL HOLD 1400 MEDS THAT ARE STILL ON ORDER TILL PT WAKES UP.
--- NOTE | 2021-06-20 15:22 | NUR ---
Received referral from [facility] Mergers And Acquisitions Attorney (Jovita Porter) on 06/20/2021. Patient is to discharge with orders for hospice and family elected [facility]. Gathered supporting documentation for referral (face sheet, labs, imaging, progress notes, palliative care note, and H&P) and sent to [facility] Hospice manager of sales (Florencio Ambrocio) for review of hospice appropriateness and ability to accept patient onto service post discharge. Will await further information from hospice manager of sales regarding the above. Hannah Lord Referral Liaison
--- NOTE | 2021-06-20 16:51 | NUR ---
pt aggitated and restless discussion with family as pt keeps stating she is done. Plan is hospice care and to transition home. review of medications with nursing.
--- NOTE | 2021-06-20 18:30 | NUR ---
SHIFT SUMMARY PT TRANSITIONED TO COMFORT CARE THIS SHIFT AFTER PALLIATIVE CARE AND PHYSICIAN DISCUSSED HER CURRENT CONDITION WITH THE FAMILY. PT WAS VERY RESTLESS AT THE START OF THE SHIFT, FENTANYL WAS GIVEN AFTER DISCUSSION WITH PALLIATIVE CARE. ATIVAN WAS ALSO ADDED TO HELP HER RELAX AND BE COMFORTABLE IN WHICH THE SMALLER END OF THE DOSE RANGE WAS USED D/T HER RECENTLY GETTING FENTANYL AND NOT WANTING TO OVER SEDATE HER. PT WAS ABLE TO REST APROXIMATELY AN HOUR AFTER ADMINISTERING THE 1MG ATIVAN. PT DID WELL WITH TAKING ORAL MEDICATIONS DESPITE SEEMING VERY GROGGY. FAMILY REMAINED AT THE BEDSIDE T/O THE SHIFT TO HELP COMFORT THE PATIENT. PER PALLIATIVE CARE, MOST MEDICATIONS WERE HELD TODAY PENDING PROVIDER REVIEW AND NO LONGER ASSESSING VITALS WITH COMFORT CARE STATUS. PT COMFORTABLE AT THIS TIME. FAMILY NOW LEAVING FOR THE NIGHT SO INCREASED ROUNDING TILL SHIFT CHANGE TO ENSURE PATIENT SAFETY. WILL CTM AND REPORT TO ONCTERRA MAYO RN.
--- NOTE | 2021-06-20 19:13 | NUR ---
PATIENT REPORTS WANTING TO LEAVE, ATTEMPTED TO GET OUT OF BED SOON FAMILY LEFT THE ROOM. FAMILY HAD REPROTED THAT SHE WAS ATTEMPTING TO GET UP OFF AND ON T/O THE SHIFT. WITH ASSISTACE WE WERE ABLE TO GET HER TO LAY DOWN AND BOOSTED IN BED, BED ALARM TURNED BACK ON FOR PATIENT SAFETY. PT KEPT ASKING US TO END IT AND THAT SHE JUST WANTED TO . WHILE REPOSITIONING HER SHE CRIED OUT IN PAIN AND WAS GIVEN A DOSE OF FENTANYL. SHE NOW APPEARS TO BE SETTLED DOWN AND RELAXED IN BED. WILL CTM
--- NOTE | 2021-06-20 23:02 | NUR ---
PT EXTREMELY AGGITATED, RESTLESS, THROWING LEGS OVER EOB, IS UNABLE TO BE REDIRECTED AND IS PULLING AT PATHAK/MEDIPORT/LINES. ALERTED AND NEW ORDERS RECIEVED FOR TIFFANY, SOFT WRIST RESTAINTS, HALDOL IV X1 AND CHANGED ATIVAN TO 1-2MG IV PRN SINCE SHE IS NOW SPITTING OUT ORAL MEDS/LIQUIDS. WILL MEDICATE AND REEVALUATE FOR EFFECT.
--- NOTE | 2021-06-21 06:43 | NUR ---
SUMMARY: PT REMAINS ON COMFORT MEASURES. HER MENTATION IS DETERIORATING AND SHE HAS BECOME MUCH MORE CONFUSED, IS VERY DIFFICULT TO REDIRECT AND WAS UNABLE TO FOLLOW COMMANDS. SHE'S BEEN ANXIOUS, RESTLESS, PULLING AT LINES AND PATHAK AND MAKES REPEATED ATTEMPTS TO GET OOB. SHE TROWS LEGS OVER EOB AND HAS BEEN BANGING FISTS ON BEDSIDE RAILS. NEW ORDER RECIEVED FOR TIFFANY VEST, BILAT SOFT WRIST RESTRAINTS AND X4 RAILS FOR PT SAFETY. HALDOL IV X1 WAS PROVIDED FOR NO EFFECT. PT ALSO RECIEVED PRN IV ATIVAN (2MG), FENTANYL IV (5OMCG) AND ROXICODONE ORAL SOLUTION (20MG) T/O NOCTE TO HELP WITH PAIN AND ANXIETY CONTROL. SHE TOLERATED SOME PO MEDS AT THE VERY START OF THE SHIFT THEN BEGAN REFUSING SIPS AND ALL PO. PATHAK IS PATENT AND DRAINING BUT UO HAS BECOME MORE CONCENTRATED AND BLOODY. SHE ALSO APPEARS MORE JAUNDICED AND WEAK T/O NOCTE. IVF ARE RUNNING TKVO. GUILLE AND REPORT TO DAY EARL.
[2021-06-21 07:31] LABS: Anion Gap 8 mmol/L (6-16); Blood Urea Nitrogen 49 mg/dL (8-24); Bun/Creatinine Ratio 30.1 (12.0-20.0); CO2, Blood 24 mmol/L (21-32); Chloride, Blood 110 mmol/L (98-108); Creatinine, Blood 1.63 mg/dL (0.40-1.00); Glomerular Filtration Rate 34 (60-); Glucose, Blood 90 mg/dL (70-99); Magnesium, Blood 2.3 mg/dL (1.6-2.4); Phosphorus, Blood 4.7 mg/dL (2.5-4.9); Sodium, Blood 142 mmol/L (136-145)
--- NOTE | 2021-06-21 10:30 | NUR ---
Comfort Care Visit Spoke with Primary RN Jennifer prior to Pt visit and discussed case. Pt may benefit from increased Ativan frequency. Pt resting in bed with her eyes closed and appears significantly anxious and agitated as evidenced by constant moving and squirming in bed. Pt in TIFFANY vest. Family at bedside and offered therapeutic listening. Encouraged family to speak with Pt and offer reasurance. Discussed comfort care medication and family agreeable for adjustments. Pt appears to be experiencing terminal restlessness. Spoke with Dr Roy and discussed case. Placed order for Ativan 1-2mg IV Q 2 Hours PRN, Haldol 1-2mg IV Q 4 Hours PRN, Roxanol 5-20mg SL Q 1 Hour PRN, D/C Roxicodone and maintenance medications per V/O from Dr Roy. Palliative Care will remain available.
--- NOTE | 2021-06-21 15:46 | NUR ---
Received notification from [facility] Pharmacist Critical Care (Jovita Porter) that patient is now imminent and will not be discharging from [facility]. Notified [facility] commanding officer motorized squad (Florencio Ambrocio) of the above. No further interventions required. Hannah Lord Referral Liaison
--- NOTE | 2021-06-21 18:13 | NUR ---
SHIFT SUMMARY PT MORE RELAXED WITH ROXANOL 10 MG Q1 PRN AND ATIVAN 2 MG Q2H. FAMILY HAS BEEN AT BEDSIDE ALL DAY. WILL REPORT TO ONCTERRA MAYO RN.
--- NOTE | 2021-06-22 05:19 | NUR ---
SHIFT SUMMARY 46 YR F ON COMFORT CARE. PT HAS CERVICAL CANCER W/ METS, AND LIVER FAILURE. HER FAMILY HAS BEEN PRESENT IN THE ROOM AND ARE ACTIVELY INVOLVEDW/ PT AND HER CARE. PT HAS BEEN ASLEEP FOR THE ENTIRETY OF THIS SHIFT BUT HAS MOMENTS OF AGITATION. ATIVAN AND ROXINOL PER EMAR SEEM TO BE A GOOD COMBINATION THAT WORKS WELL FOR HER. HER FAMILY AGREES WITH THIS.
--- NOTE | 2021-06-22 07:34 | NUR ---
ASSUMED CARE OF PT- BEDSIDE REPORT COMPLETED WITH NIGHT RN. PT IN MODERATE DISTRESS MEDICATED DURRING REPORT WITH ROXANOL. AUDIBLE SECRETIONS WITH RESPIRATIONS. CALLED DR ALICEA AND RECIEVED ORDER FOR SCOPOLOMINE FOR SECRETIONS AND PO ATIVAN FFOR THE PT COMFORT CARE. CALLED PALLIATIVE CARE RN, NOT AVAILABLE AT THIS TIME. CALLED PHARMACY TO REQUEST QUICK VERIFICATION FOR THE SCOPOLAMINE PATCH THE PT FAMILY SEEEMS TO BE DISTRESSED BY THE AUDIBLE SECRETIONS. WILL CTM AND PLACE PATCH WHEN AVAILABLE.
--- NOTE | 2021-06-22 09:00 | NUR ---
SCOPOLAMINE PATCH APPPLIED, PT POSSITIONED ON LLLEFT HIP, FACE WASHED, PLACED PT IN HOSPITAL GOWN, ATTENDS CHANGE COMPLETED.
--- NOTE | 2021-06-22 11:00 | NUR ---
COMFORT CARE NOTE- PT USING ACCESSORY MUSCLES, MEDICATED WITH 10MG ROXANOL FOR AIR HUNGER. RAISED HOB AND PLACE NECK PILLOW UNDER THE BBACK OF THE PT HEAD TO TIP HER CHIN DOWN A LITTLE TO HELP WITH THE SECRETIONS, APPLIED LOTION TO DRY SKIN ON PT BILATERAL FEET AND HANDS. FAMILY PRESENT, PROVIDED EDUCATION ABOUT THE USE OF ROXANOL FOR AIR HUNGER. PT APPEARS COMFORTABLE OTHERWISE AT THIS TIME WILL CTM.
--- NOTE | 2021-06-22 11:37 | NUR ---
Comfort Care Visit Pt resting in bed with her eyes closed. Pt is minimally responsive opening her eyes briefly when primary RN repositions her head. Family at bedise. Family appears at peace with Pt's decision for comfort care. Gentle education provided on S/S of actively dying. Educated on the importance of speaking with Pt and offering reassurance. Educted on the importance of maintaning quiet peacefull environment. Family expresses appreciation of the care Pt is receiving. No concerns reported at this time. Palliative Care will remain availabe for symptom management and supportive visits.
--- NOTE | 2021-06-22 12:02 | NUR ---
PT FAMILY CALLED FOR ASSISTANCE BECAUSE THE PT WAS NOT BREATHING- PT HEART SOUNDS STILL AUDIBLE, RESPIRATION RATE 1BREATH PER MINUTE, LIPS BLUE, FAMILY EDUCATED ABOUT EXPECTED SIGNS THE PT PROGRESSES THROUGH THE STAGES OF EEND OF LIFE. AFTER THREE MINUTES OF 1 RESP PER MINUTE THE PT RETURNED TO HER PREVIOUS RESP PATTERN WITH A MUCH LOUDER GURGLE HEARD, RAISED HOB A LITTLE MORE TO HELP WITH THIS. PT IS UNRESPONSIVE BUT BREATHING NO S&S OF DISTRESS AT THIS TIME. MULTIPLE FAMILY AT THE BEDSIDE. CALLED PASTORAL CARE AZAR TO COME SAY A PRAYER FOR THE PT, PT FAMILY WAS ACCEPTING OF THAT.
--- NOTE | 2021-06-22 12:11 | NUR ---
Spiritual care visit conducted. Pt's RN, Lina, stops me in the hallway and tells me that the family in 364 (pt's rm) is requesting an end-of-life prayer for the pt. I visit with family, conduct a life review of pt and provide prayer for pt and for comfort for the family as they grieve. Family respond well and show signs of being comforted. I will continue to remain available to patient and family.
--- NOTE | 2021-06-22 13:00 | NUR ---
CCOMFORT CARE NOTE- ORAL CARE PERFORMED, PT BIT DOWN ON THE ORAL SWAB AND COULD NOT FOLLOW INSTRUCTIONS TO LET IT GO. SLOW MASAGE OF THE CHEEK AND THE PT RELEASED IT. ORAL CARE COMPLETED IN AREAS OUTSIDE THE TEETH. NO S&S F DISTRESS NOTED AT THIS TIME. RESP RATE EVEN NO S&S OF AIR HUNGER CURRENTLY. FAMILY AT THE BEDSIDE STATE THEY ARE SATISFIED WITH THE CARE AT THIS TIME, REFILLED COMFORT CARE WATER AND COFFEE AT THIS TIME.
--- NOTE | 2021-06-22 15:00 | NUR ---
CCOMFORT CARE NOTE- PT FAMILY CALLED AND STATED THEY HAVE BEEN WIPING UP DROOL RECENTLY AND ASKED FOR STAFF TO TAKE CARE OF IT. NOTED LARGE AMOUNTS OF THICK YELLOW MUCUS COMING FROM THE LEFT SIDE OF THE PT MOUTH AND NOSE. CALLED PALLIATIVE CARE TO SEE IF SUCTION IS PART OF COMFORT CARE ORDERS. PALLIATIVE CARE RN SAVITA CALLED DR TO GET ORDERS FOR SUCTION, PALLIATIVE CARE RN PREMA Carey CAME TO ASSIST WITH PT CARE AND SUCTIONING, ORAL SUCTIONING COMPLETED WITH LARGE AMOUNTS OF THICK YELLOW MUCUS BEING EXTRACTED. PT WAS ROLLED TO HER LEFT SIDE TO IMPROVE WORK OF BREATHING AND 10MG SL ROXANOL WAS ADMINISTERED FOR AIR HUNGER POST ORAL SUCTIONING. PT TOLLERATED THE SUCTIONING WELL. ONCE THE PT WAS REPOSITIONED SHE HAD A FEW LONG PAUSES IN HER BREATHING AND THEN RETURNED TO HER NORMAL RESPIRATION RATE. FAMILY IS AGAIN AT THE BEDSIDE. PT SEEMS TO BE TRANSITIONING SOME MOTTELING IS SEEN ON PARTS OF HER EXTREMITIES. EDUCATION PROVIDED TO FAMILY BY PALLIATIVE CARE AND THIS RN.
--- NOTE | 2021-06-22 16:17 | NUR ---
Follow up spiritual care visit. Provide gentle encouragement, anticipatory grief support and a calming presence. Family responds well and shows signs of being comforted. I will continue to remain available.
--- NOTE | 2021-06-22 17:00 | NUR ---
COMFORT CARE NOTE- PT STILL HAS AUDIBLE SECRETIONS BUT NO LONGER DROOLING THICK YELLOW MUCUS. PT APPEARS TO BE COMFORTABLE AND FAMILY AGREES. WILL REEVALUATE NEED FOR REPOSITIONING AT A LATER TIME. PALLIATIVE CARE RN STATED THE PT IS ACTIVELY DYING AND REPOSITION MAY NOT BE NEEDED FREQUENTLY NOW. LOTION APPLIED TO BLLE AND BUE. FAMILY STATES NO OTHER NEEDS AT THIS TIME; WILL CTM.
--- NOTE | 2021-06-22 19:29 | NUR ---
SHIFT SUMMARY- PT IS ACTIVELY DYING. SECRETIONS ARE BUILDING UP AGAIN, PALLIATIVE CARE RN PREMA Carey IS GOING TO COME ASSIST CHANNEL CEMENTER INSOLE MACHINE RNS WITH ORAL SUCTIONING. PT PAIN SEEMS WELL MANAGED AT THIS TIME, MORE ROXANOL WILL BE ADMINISTERED TO HELP WITH WORK OF BREATHING AN PRIOR TO PT REPOSITIONING, FAMILY WOULD LIKE HER REPOSITIONED TO HER BACK FOLATED ON PILLOWS. NIGHT RN AWARE. BEDSIDE REPORT COMPLETED.
--- NOTE | 2021-06-22 20:13 | NUR ---
Multiple visit to monitor secretions and airhunger pt eminent. Theraputic time with family.
--- NOTE | 2021-06-22 22:39 | NUR ---
PT WAS PRONOUNCED AT 2210 ON 06/22/2021.
--- NOTE | 2021-06-22 23:11 | NUR ---
PATIENT PASSED @ 22:10. FAMILY PRESENT IN ROOM. HOSPITALIST DR LYN NOTIFIED. DISK RECORDIST TO CALL FACILITY PROVIDED BY BROTHER RICHELLE RIOS IN [place]. FAMILY REPORTS TO TAKE PERSONAL BELONGINGS.
--- NOTE | 2021-06-23 01:24 | NUR ---
PT POTENTIAL EYE DONOR, PER DONOR AGENCY OKAY TO RELEASE TO HOME. THEY WILL CONTACT FAMILY.
== END 2021-06-22 22:10 | DRG 948 ==
LOC: ER 09:47 → MEDS 16:45 → ICUW 06-10 15:52 → MEDS 06-10 15:52 → ICUW 06-11 12:50 → PCU 06-15 18:05 → MEDS 06-17 18:31
PROVIDERS: Family Medicine; Internal Medicine Endocrinology, Diabetes & Metabolism; Internal Medicine Nephrology; ADMIT Family Medicine
DX: G89.3 Neoplasm related pain (acute) (chronic) (principal); E22.2 Syndrome of inappropriate secretion of antidiuretic hormone; N25.81 Secondary hyperparathyroidism of renal origin; E87.2 Acidosis; C79.51 Secondary malignant neoplasm of bone; C77.9 Secondary and unspecified malignant neoplasm of lymph node, unspecified; C79.49 Secondary malignant neoplasm of other parts of nervous system; N17.9 Acute kidney failure, unspecified; Z66 Do not resuscitate; Z51.5 Encounter for palliative care; N18.31 Chronic kidney disease, stage 3a; K59.03 Drug induced constipation; H57.02 Anisocoria; E79.0 Hyperuricemia without signs of inflammatory arthritis and tophaceous disease; I12.9 Hypertensive chronic kidney disease with stage 1 through stage 4 chronic kidney disease, or unspecified chronic kidney disease; C76.0 Malignant neoplasm of head, face and neck; J45.909 Unspecified asthma, uncomplicated; F41.9 Anxiety disorder, unspecified; D64.81 Anemia due to antineoplastic chemotherapy; C53.9 Malignant neoplasm of cervix uteri, unspecified; E83.39 Other disorders of phosphorus metabolism; T39.95XA Adverse effect of unspecified nonopioid analgesic, antipyretic and antirheumatic, initial encounter; Z79.899 Other long term (current) drug therapy; Z87.891 Personal history of nicotine dependence; Z98.890 Other specified postprocedural states
CPT/HCPCS: 36415; 36430; 51702; 70450; 71260; 74177; 76770; 80048; 80053; 80069; 82024; 82140; 82150; 82248; 82533; 82550; 82728; 82803; 83540; 83550; 83690; 83735; 83930; 83935; 84100; 84295; 84300; 84443; 84550; 85014; 85018; 85025; 86850; 86900; 86901; 86923; 94762; 96372; 96374; 96375; 96376; 97110; 97116; 97163; 97165; 97166; 97530; 97535; 99285-25; A9270; C1751; G0378; J0360; J0780; J1100; J1170; J1630; J1642; J1644; J1650; J1790; J1940; J2060; J2405; J2765; J2783; J3010; J3475; J3480; J7030; J7040; J7050; J7131; P9016; Q9967